=== PATIENT | female | born 1985 | race Two or more races ===

== ENCOUNTER 2020-08-22 10:17 | Outpatient (REF) | payer OTHER, SELFPAY | END 2020-08-22 10:18 | disposition home or self-care (01) | LOC: HO.LAB 10:17 | PROVIDERS: Visit Provider Internal Medicine | DX: Z20.828 Contact with and (suspected) exposure to other viral communicable diseases (principal) | CPT/HCPCS: C9803; U0003 ==

== ENCOUNTER 2020-09-22 16:50 | Outpatient (REF) | payer OTHER, SELFPAY | END 2020-09-22 16:51 | disposition home or self-care (01) | LOC: HO.LAB 16:50 | PROVIDERS: Visit Provider Internal Medicine | DX: Z20.828 Contact with and (suspected) exposure to other viral communicable diseases (principal) | CPT/HCPCS: C9803; U0003 ==

== ENCOUNTER 2023-08-25 16:36 | Outpatient (REF) | payer OTHER, SELFPAY ==
[2023-09-01 03:19] LABS: HPV mRNA E6/E7 rflx Detected (Not Detected)
[2023-09-01 03:28] LABS: HPV 16 RNA NOT DETECTED (NOT DETECTED)
== END 2023-08-25 16:37 | disposition home or self-care (01) ==
LOC: HO.HHCLNP 16:36
PROVIDERS: Visit Provider Advanced Practice Midwife
DX: Z12.4 Encounter for screening for malignant neoplasm of cervix (principal); Z11.51 Encounter for screening for human papillomavirus (HPV)
CPT/HCPCS: 87624; 87625; 88142

== ENCOUNTER 2023-09-16 13:11 | Outpatient (REF) | payer OTHER, SELFPAY ==
--- NOTE | ~2023-09-16 | US_ITS ---
EXAMINATION: US PELVIS CLINICAL INFORMATION: Menorrhagia with regular cycle; the last menstrual period was on 09/08/2023. COMPARISON: None available. TECHNIQUE: Ultrasound of the pelvis is performed using both transabdominal and transvaginal transducers along with Doppler. Transvaginal imaging is performed due to inadequate visualization transabdominally. FINDINGS: Uterus: The uterus is anteverted and measures 7.9 x 4.3 x 6.0 cm. The double wall endometrial thickness is 8 mm. A small amount of nonspecific, anechoic fluid is seen within the endometrial canal. The uterus is smooth in contour and has normal myometrial echogenicity. No visible fibroid. Nabothian cysts are seen within the cervix. Adnexa: Both ovaries are visualized. There is normal color flow to the adnexa. There is no ovarian torsion. There is no pelvic ascites or fluid collection. Right ovary measures 3.1 x 1.6 x 2.4 cm, volume 6.2 mL. The right ovary contains a 1.3 x 1.2 x 1.3 cm simple, physiologic follicle. This requires no imaging follow-up. Left ovary measures 2.8 x 1.5 x 1.9 cm, volume 4.2 mL. US/US pelvic and transvaginal IMPRESSION: 1. Nabothian cysts are seen within the cervix. 2. There is a small amount of free fluid noted within the endocervical canal.
== END 2023-09-16 13:12 | disposition home or self-care (01) ==
LOC: HO.US 13:11
PROVIDERS: PCP Registered Nurse; Visit Provider Advanced Practice Midwife
DX: N92.0 Excessive and frequent menstruation with regular cycle (principal)
CPT/HCPCS: 76830; 76856

== ENCOUNTER 2024-09-11 18:21 | Outpatient (REF) | payer OTHER, SELFPAY ==
[2024-09-12 11:00] LABS: HPV 16,18/45 See PAP report
== END 2024-09-11 18:22 | disposition home or self-care (01) ==
LOC: HO.HHCLNP 18:21
PROVIDERS: Visit Provider Advanced Practice Midwife
DX: Z12.4 Encounter for screening for malignant neoplasm of cervix (principal)
CPT/HCPCS: 87624; 88175

== ENCOUNTER 2024-11-02 11:11 | Outpatient (REF) | payer OTHER, SELFPAY ==
--- NOTE | ~2024-11-02 | XR_ITS ---
EXAMINATION: XR LUMBOSACRAL SPINE CLINICAL INFORMATION: Low back pain COMPARISON: None available. TECHNIQUE: Three views of the lumbosacral spine. FINDINGS: The vertebral bodies and posterior elements are normal. The disc spaces are preserved and the vertebral alignment is normal. The paraspinal soft tissues are normal. XR/XR lumbar spine 2-3V IMPRESSION: Unremarkable lumbar spine examination. Electronically signed by: Kevon Lynch MD 11/02/2024 11:31 AM SHAHID
== END 2024-11-02 11:12 | disposition home or self-care (01) ==
LOC: HO.HHCX 11:11
PROVIDERS: Visit Provider Registered Nurse
DX: M54.50 Low back pain, unspecified (principal)
CPT/HCPCS: 72100

== ENCOUNTER → 2024-11-02 11:11 | Outpatient (BNV) | payer OTHER, SELFPAY | PROVIDERS: Visit Provider Radiology Diagnostic Radiology | DX: M54.50 Low back pain, unspecified (principal) | CPT/HCPCS: 72100 ==

== ENCOUNTER 2024-11-12 10:19 | Outpatient (REF) | payer OTHER, SELFPAY ==
[2024-11-12 11:33] LABS: MANUAL DIFF FLAG NO
[2024-11-12 11:45] LABS: Basophils Percent Auto 0.3 % (0-2); Eosinophils Absolute Auto 0.1 X10*3/uL (0.0-0.4); Eosinophils Percent Auto 2.5 % (0-4); Hematocrit 32.6 % (37.0-47.0); Hemoglobin 10.1 g/dl (12.0-16.0); Lymphocytes Absolute Auto 1.8 X10*3/uL (1.2-4.9); Lymphocytes Percent Auto 50.3 % (20-40); Mean Corpuscular Hemoglobin 25.8 pg (27.0-33.0); Mean Corpuscular Volume 83.4 fL (80.0-98.0); Mean Platelet Volume 11.5 fL (9.4-12.3); Monocytes Absolute Auto 0.2 X10*3/uL (0.1-1.2); Monocytes Percent Auto 5.8 % (2-11); Neutrophils Absolute Auto 1.5 x10*3/uL (2.0-8.3); Neutrophils Percent Auto 41.1 % (45-73); Platelet Count 224 X10*3/uL (160-400); Red Blood Count 3.91 X10*6/uL (4.20-5.50); Red Cell Distribution Width 13.7 % (11.0-16.0); White Blood Count 3.6 X10*3/uL (4.8-10.8)
[2024-11-12 12:10] LABS: Ferritin 20 ng/mL (10-122)
[2024-11-12 12:14] LABS: TSH reflex Free T4 0.92 uIU/mL (0.32-4.0)
--- OUTSIDE RECORDS SUMMARY | 2024-11-12 14:58 | XMS_ITS | Encounter Summary ---
Author Organization [facility] Address [address] [place] [address] [address], [place] [address] Care Team Providers Care Denture Packer Name Role Phone [place] [employer] FIELD HUMAN RESOURCES MANAGER Primary Care Provider [phone] Reason for Referral * Imaging (Urgent) - Authorized Specialty Diagnoses / Procedures Referred By Contac t Referred To Contact Radiology Diagnoses Abnormal uterine bleeding (AUB) Procedures Us Pelvis complete Bonnie Laughlin CNM [address] [place] [address] Phone: tel: fax: [facility] [address] [place] [id number] Phone: tel: fax: Referral ID Status Reason Start Date Expiration Date V isits Requested Visits Authorized [id number] Authorized 11/12/2024 11/12/2025 1 1 * Imaging (Urgent) - Authorized Specialty Diagnoses / Procedures Referred By Contac t Referred To Contact Radiology Diagnoses Abnormal uterine bleeding (AUB) Procedures US Pelvis Transvaginal Bonnie Laughlin CNM [address] [place] [address] Phone: tel: fax: [facility] [address] [place] [address] Phone: tel: fax: Referral ID Status Reason Start Date Expiration Date V isits Requested Visits Authorized [id number] Authorized 11/12/2024 11/12/2025 1 1 Encounter Details Date Type Department Care Team (Latest Contact Info) Description 11/12/2024 9:30 AM EST Procedure Visit [facility] [address] [place] [address] Bonnie Laughlin CNM [address] [place] [address] Encounter for initial insertion of intrauterine contraceptive device (Primary Dx); Abnormal uterine bleeding (AUB); Screening examination for venereal disease Social History Tobacco Use Types Packs/Day Years Used Date Smoking Tobacco: Former Cigarettes Smokeless Tobacco: Never Alcohol Use Standard Drinks/Week Comments Never 0 (1 standard drink = 0.6 oz pur e alcohol) Depression Answer Date Recorded Patient Health Questionnaire-9 Score 0 11/02/2024 Patient Health Questionnaire-9 Score 0 11/02/2024 Last PHQ-9: Questionnaire Data Not on file 0 11/02/2024 Housing Stability Answer Date Recorded What is your housing situation today? I have antoinette ferreira 10/24/[address] you li ve. Do you have problems with any of the following? None of the above 10/24/2024 Food Insecurity Answer Date Recorded Within the past 12 months, y ou worried that your food would run out before you got money to buy more: Never True 10/24/2024 Within the past 12 months,th e food you bought just didn't last and you didn't have enough money to get more: Never True 05/2025 Transportation Answer Date Recorded In the past 12 months, has l ack of transportation kept you from medical appts, meetings, work or from getting things needed for daily living? No 10/24/2024 Utilities Answer Date Recorded In the past 12 months, has t he electric, gas, oil or water company threatened to shut off services in your home? No 10/24/2024 Depression Answer Date Recorded Patient Health Questionnaire-2 Score 0 11/02/2024 Internet Access Answer Date Recorded Internet Access Q1 Yes 10/24/2024 Internet Access Q2 Not on file 10/24/2024 Comments No Sex and Gender Information Value Date Recorded Sex Assigned at Female 08/16/2022 10:39 AM EDT Legal Sex Female 10:39 AM EDT Gender Identity Female 08/16/2022 10:39 AM EDT Sexual Orientation Straight 08/16/2022 10 :39 AM EDT Travel History Travel Start Travel End [place] 10/12/2024 10/20/2024 documented as of this encounter Last Filed Vital Signs Vital Sign Reading Time Taken Comments Blood Pressure 157/85 11/12/2024 9:30 AM EST Pulse 53 11/12/2024 9:30 AM EST Temperature 36.4 ??C (97.6 ??F) 11/12/2024 9:30 AM ES T Respiratory Rate 16 11/12/2024 9:30 AM EST Oxygen Saturation 99% 11/12/2024 9:30 AM EST Inhaled Oxygen Concentration - - Weight 73.3 kg (161 lb 8.8 oz) 11/12/2024 9:30 A M EST Height 165.1 cm (5' 5 ) 11/12/2024 9:30 AM EST Body Mass Index 26.88 11/12/2024 9:30 AM EST documented in this encounter Progress Notes * Bonnie Laughlin CNM - 11/12/2024 9:30 AM EST Subjective Patient ID: Sara Lino is a 39 y.o. female who presents for IUD Pap NIL/HPV neg 2023. No worrisome findings on ultrasound 2022. Interested in progestin IUD for treatment of heavy menses. Has tubal ligation. Treated for pneumonia with ? Erythromycin by outside urgent care. Feeling better now. Notes shortened menstrual interval which is newer for her, as well as some night sweats. LMP 1/24, still bleeding today. Previous menses 17 x 6 days. Typically menses more or less monthly, occasional 21-22 day interval.History of fibroid. Denies vaginal/urinary symptoms. Review of Systems Constitutional: Negative for unexpected weight change. Endocrine: Positive for heat intolerance. Genitourinary: Positive for menstrual problem. Negative for vaginal discharge and vaginal pain. Objective BP (!) 157/85 (BP Location: Left arm, Patient Position: Sitting, BP Cuff Size: Adult) Pulse 53 Temp 97.6 ??F (36.4 ??C) (Temporal) Resp 16 Ht 5' 5 (1.651 m) Wt 161 lb 8.8 oz (73.3 kg) LMP 11/09/2024 (Exact Date) SpO2 99% BMI 26.88 kg/m?? Physical Exam Constitutional: Appearance: Normal appearance. Neurological: Mental Status: She is alert. Psychiatric: Mood and Affect: Mood normal. Behavior: Behavior normal. Assessment/Plan Diagnoses and all orders for this visit: Encounter for initial insertion of intrauterine contraceptive device - POCT , urine manually resulted test negative today. New onset shortened interval, history of fibroids. Last [pelvic ultrasound 09/2023. Reviewed need for further evaluation prior to IUD insertion. Will check ultrasound and TSH and contact with results. If normal ultrasound and TSH, and no further AUB, will proceed withIUD. If AUB persists, or if indicated by ultrasound, would advise TRAFFIC CONTROL TECHNICIAN consult for Endometrial biopsy Abnormal uterine bleeding (AUB) - TSH W/Reflex to FT4; Future - US Pelvis Transvaginal; Future - Us Pelvis complete; Future Will check ultrasound and TSH and contact with results. If normal ultrasound and TSH, and no further AUB, will proceed with IUD. If AUB persists, or if indicated by ultrasound, would advise TRAFFIC CONTROL TECHNICIAN consult for Endometrial biopsy Screening examination for venereal disease - Chlamydia/N. Gonorrhoeae RNA, TMA, Urogenitial documented in this encounter Plan of Treatment Scheduled Orders Name Type Priority Associated Diagnoses Orde r Schedule Chlamydia/N. Gonorrhoeae RNA, TMA, Urogenitial Microbiology Routine Screening examination for venereal disease Ordered: 11/12/2024 US Pelvis Transvaginal Imaging Urgent Abnormal uterine bleeding (AUB) Expected: 11/12/2024, Expires: 11/12/2025 Us Pelvis complete Imaging Urgent Abnormal uterine bleeding (AUB) Expected: 11/12/2024, Expires: 11/12/2025 documented as of this encounter Procedures Procedure Name Priority Date/Time Associated Diagnosis Comments TSH W/REFLEX TO FT4 Routine 11/12/2024 10:22 AM EST Abnormal uterine bleeding (AUB) POCT , URINE Routine 11/12/2024 9:45 AM EST Encounter for initial insertion of intrauterine contraceptive device documented in this encounter Results * TSH W/Reflex to FT4 (11/12/2024 10:22 AM EST) TSH reflex Free T4 0.92 0.32 - 4.0 uIU/mL [facility] Blood Venous blood specimen / Unknown 11/12/2024 10:22 AM EST 11/12/2024 11:30 AM EST Bonnie ROY LAB BLOOD ORDERABLES Genesis l Result [facility] [address] [place] [phone] * POCT , urine manually resulted (11/12/2024 9:45 AM EST) Preg Test, Ur Negative Negative, Indeterminate, None Detected, Invalid, Specimen unsatisfactory for evaluation, Weakly Positive QC Media Lot # [id number] Lot# Expiration Date [id number] Urine 11/12/2024 9:45 AM EST Bonnie Laughlin [facility] POINT OF CARE TEST ENTER/ EDIT ORDERABLES Final Result documented in this encounter Visit Diagnoses Diagnosis Encounter for initial insertion of intrauterine contraceptive device- Primary Abnormal uterine bleeding (AUB) Screening examination for venereal disease documented in this encounter Additional Health Concerns Assessment Noted Time PHQ-9 Depression Total Score: 0 11/02/19 25 9:34 AM EST documented as of this encounter Care Teams Denture Packer Relationship Specialty Start Date End Date Nereyda Kuo FNP [address] [place] [phone] PCP - General Family Medicine 03/01/23 documented as of this encounter
--- OUTSIDE RECORDS SUMMARY | 2024-11-12 14:58 | XMS_ITS | Encounter Summary ---
Author Organization [facility] [employer] Address [address] [place] [address] Care Team Providers Care Artists' Model Name Role Phone [place] [facility] Primary Care Provider [phone] Encounter Details Date Type Department Care Team (Late st Contact Info) Description 11/06/[address] [facility] MEDICINE [address] [place], [place] [phone] [place] [facility] [address] [place], [place] [phone] Social History Tobacco Use Types Packs/Day Years Used Date Smoking Tobacco: Every Day Cigarettes Smokeless Tobacco: Never Alcohol Use Standard [...] EDT Travel History Travel Start Travel End [place] 10/12/2024 10/20/2024 documented as of this encounter Plan of Treatment Not on file documented as of this encounter Visit Diagnoses Not on filedocumented in this encounter Additional Health Concerns Assessment Noted Time PHQ-9 Depression Total Score: 0 11/02/19 25 9:34 AM EST documented as of this encounter Care Teams Artists' Model Relationship Specialty Start Date End Date Nereyda Kuo FNP [address] [place] [id number] PCP - General Family Medicine 03/01/23 documented as of this encounter
--- OUTSIDE RECORDS SUMMARY | 2024-11-12 14:58 | XMS_ITS | Clinical Summary ---
Author Organization [employer] Address [address] [facility] 7t [place] [address] Care Team Providers Care Cloth Neutralizer Name Role Phone Ayaan [facility] Primary Care Provider [phone] Allergies No known active allergies Medications ferrous gluconate (Fergon) 324 (38 Fe) MG tabletIndicati ons:Iron deficiency anemia due to chronic blood loss Take one tablet by mouth every other day 30 tablet 11 03/28/20 23 Active clotrimazole (Lotrimin) 1 % cream Apply topically 2 times daily. 40 g 1 04/26/20 23 Active cyclobenzaprin e (Flexeril) 5 MG tabletIndicati ons:Low back pain at multiple sites Take 1 tablet (5 mg) by mouth if needed in the morning, at noon, and at bedtime for muscle spasms. 30 tablet 1 11/02/19 25 026 Active ibuprofen 600 MG tabletIndicati ons:Low back pain at multiple sites Take 1 tablet (600 mg) by mouth every 6 (six) hours if needed for mild pain. 30 tablet 3 11/02/19 25 Active sertraline (Zoloft) 50 MG tabletIndicati ons:Anxiety Take 1 tablet (50 mg) by mouth in the morning. 30 tablet 11 03/29/20 23 025 Discontinued fluconazole (Diflucan) 150 MG tablet One tablet now, repeat 3 days if needed 2 tablet 09/25/20 24 025 Discontinued Active Problems Problem Noted Date Diagnosed Date Healthcare maintenance 03/29/2023 Overview (03/29/2023): Mammo: Routine age 40 Pap: Hx of abnormal pap. 03/2021 NIL HPV +/ 05/2022, due in April for pap; C-scope: Routine age 45 BMD: Routine age 65 Iron deficiency anemia due to chronic blood loss 03/29/2023 Overview (03/29/2023): ?? Oral ferrous gluconate every other day ?? Previously receiving IV iron in [place] d/t difficult tolerating s/e ?? S/t heavy menses Anxiety 03/06/2023 Overview (03/29/2023): ?? Sertraline 25mg daily ?? Declined [facility] referral Tobacco use disorder 03/06/2023 Encounters Date Type Department Care Team Description 11/12/2024 9:30 AM EST Procedure Visit [facility] [address] Markie Sullivan CNM Encounter for initial insertion of intrauterine contraceptive device (Primary Dx); Abnormal uterine bleeding (AUB); Screening examination for venereal disease 11/12/2024 Travel 11/06/2024 Telephone [facility] Carlos Manuel [facility] [place] [address] Wray Nereyda [facility] 11/02/2024 9:30 AM EST Office Visit [facility] [address] [facility] Healthcare maintenance (Primary Dx); Viral upper respiratory tract infection; Low back pain at multiple sites; Anxiety; Menorrhagia with regular cycle; Family history of breast cancer; Tobacco use disorder; Dietary counseling; Exercise counseling 11/02/2024 Travel 10/24/2024 Patient Outreach [facility] Carlos [place] [facility] [place] [address] [facility] Pre-visit Planning (SDOH screening negative and tobacco screening negative) 09/25/2024 1:00 PM EST Office Visit [facility] [address] Markie Sullivan CNM Candidiasis of vulva and vagina (Primary Dx) 09/25/2024 Travel 09/24/2024 Telephone [facility] Carlos [place] [facility] [place] [address] Abbi Ewing RN 09/11/2024 9:30 AM EST Procedure Visit [address] [address] Markie Sullivan CNM Acute vaginitis (Primary Dx); Routine cervical smear; Breast cancer screening by mammogram; Menorrhagia with regular cycle 09/11/2024 Travel 08/30/2024 Telephone [facility] [address] [place] [address] Cori Johnston MA chart prep 08/30/2024 Telephone [facility] [address] [place] [address] Markie Sullivan CNM appointment reschedule 08/30/2024 Travel 08/28/2024 Telephone [facility] [address] [place], [place] [phone] Nereyda Kuo FNP Nurse Triage; Results (PATIENT CALLED TO CANCEL APPT. SICK ON SITE ) from Last 3 Months Immunizations Name Administration Dates Next Due DTP 04/12/1989, 6,1985,1984 DTaP / HiB / IPV 05/07/1988,07/11/1986 HPV 9-Valent 07/12/2022 HPV, Quadrivalent 11/24/2018,09/22/2018 Hep B, Adolescent or Pediatric 10/06/1998,1997,04/01/1998 IPV 04/12/1989,1985,1985 Influenza Injectable Quadriv alant Preservative Free IIV4 MDCK 07/07/2023,09/08/2022,07/22/2021 Influenza injectable quadriv alent preservative free 08/07/2020 Influenza, seasonal, injecta ble, preservative free 07/04/2024 MMR 11/08/1994,07/11/1986 TD (adult), 2 Lf tetanus tox oid, preservative free, adsorbed 04/22/2003,05/22/1992 Family History Medical History Relation Name Comments Premenopausal breast cancer Father's Sister 1 Premenopausal breast cancer Father's Sister 2 2 aunts total with breast cancer Relation Name Status Comments Father's Sister 1 Father's Sister 2 Other Social History Tobacco Use Types Packs/Day Years [...] EDT Travel History Travel Start Travel End [place] 10/12/2024 10/20/2024 Last Filed Vital Signs Vital Sign Reading [...] Mass Index 26.88 11/12/2024 9:30 AM EST Plan of Treatment Health Maintenance Due Date Last Done Comments Alcohol/Substance Use Screening 1997 DTaP/Tdap/Td Vaccines (6 - Tdap) 04/23/2003 04/22/2003, 05/22/1992, 04/12/1989, Additional history exists COVID-19 Vaccine ( season) 2024 10/06/2021, 12/03/2020, 11/05/2020 Cervical Cancer Screening 09/11/2025 HPV/Cotest 09/11/2025 08/25/2023 Pap Smear 09/11/2025 09/11/2024, 08/25/2023 SDOH Screening 10/24/2025 10/24/2024 Depression Screening 11/02/2025 11/02/2024, 03/01/20 23 Family Planning (PISQ) 11/12/2025 11/12/2024 Tobacco Screening 11/12/2025 11/12/2024 Zoster Vaccines (1 of 2) 2035 RSV Patients and Patients Aged 60 years or older (1 - 1-dose 75+ series) 2060 HIB Vaccines Completed 05/07/1988, 07/11/1986 IPV Vaccines Completed 04/12/1989, 04/17, 07/11/1986, Additional history exists Hepatitis B Vaccines Completed 10/06/1998, 05/01/1998, 04/01/1998 HPV Vaccines Completed 07/12/2022, 02/0 05/2019, 09/22/2018 HIV Screening Completed 03/25/2023 Hepatitis C Screening Completed 03/25/2023 Influenza Vaccine Completed 07/04/2024, , 09/08/2022, Additional history exists Hepatitis A Vaccines Aged Out No long er eligible based on patient's age to complete this topic Meningococcal Vaccine Aged Out No cecelia mai eligible based on patient's age to complete this topic Pneumococcal Vaccine: Pediatrics (0 to 5 Years) and At-Risk Patients (6 to 64 Years) Aged Out No longer eligible based on patient's age to complete this topic RSV under 20 months Aged Out No longe r eligible based on patient's age to complete this topic Rotavirus Vaccines Aged Out No longer eligible based on patient's age to complete this topic Procedures Procedure Name Priority Date/Time Associated Diagnosis Comments TSH W/REFLEX TO FT4 Routine 11/12/2024 1 0:22 AM EST Abnormal uterine bleeding (AUB) FERRITIN Routine 11/12/2024 10:22 AM EST Menorrhagia with regular cycle CBC WITH AUTO DIFFERENTIAL Routine 11/12/2024 10:22 AM EST Menorrhagia with regular cycle POCT , URINE Routine 11/12/2024 9:45 AM EST Encounter for initial insertion of intrauterine contraceptive device XR LUMBAR SPINE 2-3 VIEWS Routine 11/02/2024 11:11 AM EST Low back pain at multiple sites POCT WET MOUNT/PAOLA Routine 09/25/2024 8: 52 AM EST Candidiasis of vulva and vagina POCT WET MOUNT/PAOLA Routine 09/11/2024 9: 59 AM EST Acute vaginitis PAP SMEAR Routine 09/11/2024 9:52 AM EST Routine cervical smear HPV MRNA E6/E7 REFLEX TO HPV 16, 18/45 Routine 08/25/2023 9:33 AM EST HEPATITIS C AB W/REFL TO HCV RNA, QN, PCR Routine 03/25/2023 8:25 AM EDT Healthcare maintenance HIV 1/2 ANTIGEN/ANTIBODY, FOURTH GENERATION W/RFL Routine 03/25/2023 8:25 AM EDT Healthcare maintenance from Last 3 Months or Most Recently Relevant to Health Maintenance Results * TSH W/Reflex to FT4 (11/12/2024 10:22 AM EST) TSH reflex Free T4 0.92 0.32 - 4.0 uIU/mL [facility] Blood Venous blood specimen / Unknown 11/12/2024 10:22 AM EST 11/12/2024 11:30 AM EST us Markie Sullivan [facility] LAB BLOOD ORDERABLES Genesis l Result [facility] [address] [place] [address] [phone] * (ABNORMAL) CBC auto differential (11/12/2024 10:22 AM EST) Pathologist [facility] White Blood Count 3.6(L) 4.8 - 10.8 X10*3/uL [facility] Red Blood Count 3.91(L) 4.20 - 5.50 X10*6/uL [facility] Hemoglobin 10.1(L) 12.0 - 16.0 g/dl [facility] Hematocrit 32.6(L) 37.0 - 47.0 % [facility] Mean Corpuscular Volume 83.4 80.0 - 98.0 fL [facility] Mean Corpuscular Hemoglobin 25.8(L) 27.0 - 33.0 pg [facility] Mean Corpuscular HGB Conc 31.0 31.0 - 35.0 g/dl [facility] Red Cell Distribution Width 13.7 11.0 - 16.0 % [facility] Platelet Count 224 160 - 400 X10*3/uL [facility] Mean Platelet Volume 11.5 9.4 - 12.3 fL [facility] Neutrophils Percent Auto 41.1(L) 45 - 73 % [facility] Imm Gran Pct Auto 0.0 0.0 - 0.4 % [facility] Lymphocytes Percent Auto 50.3(H) 20 - 40 % [facility] Monocytes Percent Auto 5.8 2 - 11 % [facility] Eosinophils Percent Auto 2.5 0 - 4 % [facility] Basophils Percent Auto 0.3 0 - 2 % [facility] NRBC Pct Auto 0.0 0.0 - 0.2 /100WBC [facility] Neutrophils Absolute Auto 1.5(L) 2.0 - 8.3 x10*3/uL [facility] Imm Gran Abs Auto 0.00 0.00 - 0.03 X10*3/uL [facility] Lymphocytes Absolute Auto 1.8 1.2 - 4.9 X10*3/uL [facility] Monocytes Absolute Auto 0.2 0.1 - 1.2 X10*3/uL [facility] Eosinophils Absolute Auto 0.1 0.0 - 0.4 X10*3/uL [facility] Basophils Absolute Auto 0.0 0.0 - 0.2 X10*3/uL [facility] NRBC Abs Auto 0.000 0.0 - 0.012 X10*3/uL [facility] Blood Venous blood specimen / Unknown 11/12/2024 10:22 AM EST 11/12/2024 11:30 AM EST [facility] LAB BLOOD ORDERABLES Final Re sult Performing Organization Address City/[facility]/ZIP Co de Phone Number [facility] [address] [place] [address] [phone] * Ferritin (11/12/2024 10:22 AM EST) Ferritin 20 10 - 122 ng/mL [facility] Blood Venous blood specimen / Unknown 11/12/2024 10:22 AM EST 11/12/2024 11:30 AM EST [facility] LAB BLOOD ORDERABLES Final Re sult Performing Organization Address City/[facility]/ZIP Co de Phone Number [facility] [address] [place] [address] [phone] * POCT , urine manually resulted (11/12/2024 9:45 AM EST) Preg Test, Ur Negative Negative, Indeterminate, None Detected, Invalid, Specimen unsatisfactory for evaluation, Weakly Positive QC Media Lot # [id number] Lot# Expiration Date [id number] Urine 11/12/2024 9:45 AM EST us Markie Tabaresfaye CNM POINT OF CARE TEST ENTER/ EDIT ORDERABLES Final Result * XR Lumbar Spine 2-3 Views (11/02/2024 11:11 AM EST) Anatomical Region Laterality Modality Spine, L-spine Radiographic Carine ging 11/02/2024 11:1 1 AM EST Narrative 11/02/2024 11:34 AM EST ?[facility] ?[address] ?[place] [address] ?XRay Report ? Signed ? Patient: Sara Lino ?MR#: [id number] ?? 37 ? : 1985 ?Acct:[id number] ? Age/Sex: 39 / F ?ADM Date: 11/02/24 ? Loc: HO.HHCX ? Attending Dr: Nereyda Kuo FLOOR MECHANIC ? Ordering Physician: Nereyda Kuo FLOOR MECHANIC ?? Date of Service: 11/02/24 ?? Procedure(s): XR lumbar spine 2-3V ?? Accession Number(s): [id number] ? cc: Nereyda Kuo FLOOR MECHANIC ? EXAMINATION: ?? XR LUMBOSACRAL SPINE ? CLINICAL INFORMATION: ?? Low back pain ? COMPARISON: ?? None available. ? TECHNIQUE: ?? Three views of the lumbosacral spine. ? FINDINGS: ?? The vertebral bodies and posterior elements are normal. The disc spaces ?? are preserved and the vertebral alignment is normal. The paraspinal ?? soft tissues are normal. ? XR/XR lumbar spine 2-3V ?? IMPRESSION: ?? Unremarkable lumbar spine examination. ? Electronically signed by: ??Kevon Lynch MD ??11/02/2024 11:31 AM EST RP ? Dictated By: ?Cris,Kevon S MD ? Signed By: ?<Electronically signed by Kevon S MD Cris in OV> ?11/02/24 1131 ? DD/ 1111 ? TD/TT: 11/02/24 1128 ? Production Director: MSM ? Procedure Note Donotuseinterpreter, Image - 11/02/2024 [facility] [address] [place] [address] XRay Report Signed Patient: Dash Lino#: [id number] 37 : 1985Acct:[id number] Age/Sex: 39 / FADM Date: 11/02/24 Loc: HO.HHCX Attending Dr: Nereyda Kuo FLOOR MECHANIC Ordering Physician: Nereyda Kuo Date of Service: 11/02/24 Procedure(s): XR lumbar spine 2-3V Accession Number(s): [id number] cc: Nereyda Kuo [facility] EXAMINATION: XR LUMBOSACRAL SPINE CLINICAL INFORMATION: Low back pain COMPARISON: None available. TECHNIQUE: Three views of the lumbosacral spine. FINDINGS: The vertebral bodies and posterior elements are normal. The disc spaces are preserved and the vertebral alignment is normal. The paraspinal soft tissues are normal. XR/XR lumbar spine 2-3V IMPRESSION: Unremarkable lumbar spine examination. Electronically signed by: Kevon Lynch MD 11/02/2024 11:31 AM EST Dictated By: Kevon Lynch MD Signed By: <Electronically signed by Kevon Lynch MD in OV> 11/02/24 1131 DD/ 1111 TD/TT: 11/02/24 1128 Production Director: MSM [facility] FLOOR MECHANIC IMG XR PROCEDURES Edited Resu lt - Final * POCT fern test, vaginal fluid manually resulted (09/25/2024 8:52 AM EST) Only the most recent of2 resultswithin the time period is included. PAOLA Prep Positive Comment:pH 4.5, neg whiff, n eg clue, neg trich, neg wbc, pos yeast Vaginal Fluid Vaginal structure / Unknown 09/25/2024 8:52 AM EST Impressions Markie Sullivan CNM - 09/25/2024 8:52 AM EST Vulvovaginal candidiasis Markie Sullivan CNM POINT OF CARE TEST ENTER/ EDIT ORDERABLES Final Result * Pap Smear (09/11/2024 9:52 AM EST) Swab Cervix uteri structure / Unknown 09/11/2024 9:52 AM EST 09/12/2024 8:30 AM EST Narrative [facility] - 09/19/2024 10:33 AM EST ----- ------- Name: Sara Lino ? Age/Sex: 39/F ? : 1985 Unit#: [id number] ?? Attend Dr: MARKIE SULLIVAN CNM ?Re09/11/24 ?Status: DEP REF ? Location: HOMARY ? Disch: ? ----- ------- SPEC : [id number] ?RECD: 09/12/24 ? STATUS: ??SOUT ? REQ NUM: [id number] ? TRAE: 09/11/24 ? SUBM DR: MARKIE SULLIVAN CNM ? ENTERED: ??09/12/24 ?SP TYPE: Pap Smr ?OTHR DR: ? ORDERED: ??Pap Smear ? Interpretation ?? Satisfactory for evaluation. ?? Negative for intraepithelial lesion or malignancy. ?? Coccobacilli consistent with shift in vaginal jojo. ? HPV High Risk: ??Negative ? HPV Genotyping 16: ??Negative ?? HPV Genotyping 18: ??Negative ?Clinical Information LMP: 09/03/2024 Previous PAP test: Unknown date, HPV + ? Material Received ?? ThinPrep-Cervical ----- ------- Signed (signature on file) AMANDA Fletcher (ASCP) 09/19/24 1033 ? ----- ------- ? END OF REPORT ? us Markie Tabaresfaye [facility] CYTOLOGY ORDERABLES F inal Result [facility] [address] [place], [place] [phone] * (ABNORMAL) HPV mRNA E6/E7 w/Reflex to HPV Genotypes 16, 18/45 (08/25/2023 9:33 AM EST) HPV nRNA E6/E7 Detected(A ) Not Detected [facility] Comment:Methodology: Transcr iption-Mediated AmplificationThis assay detects E6/E7 viral messenger RNA (mRNA) from 14high-risk HPV types (16,18,31,33,35,39,45,51,52,56,58,59,66,68).Cervical sources are required for HPV testing.If a vaginal source from a patient who has had atotal hysterectomy with removal of cervix wassubmitted, please contact the testing laboratoryfor alternative testing options.For additional information, please refer tohttp://education.[employer]/faq/KDY265j1(This link if provided for information/educational purposes only.)THIS TEST WAS PERFORMED AT:[email or web address] [place] [phone] PRICE MD HPV 16 RNA NOT DETECTED NOT DETECTED [facility] HPV 18/45 RNA NOT DETECTED NOT DETECTED [facility] Comment:Methodology: Transcr iption Mediated AmplificationCervical sources are required for HPV testing.If a vaginal source from a patient who has had atotal hysterectomy with removal of cervix wassubmitted, please contact the testing laboratoryfor alternative testing options.THIS TEST WAS PERFORMED AT:[email or web address] [place] [phone] PRICE MD 08/25/2023 9:33 AM EST 08/26/2023 8:10 AM EST Markie Truman CN LAB CYTOLOGY ORDERABLES F inal Result Performing Organization Address City/[facility]/ZIP Co de Phone Number [facility] [address] [place] [phone] * Hepatitis C Antibody with Reflex to HCV, RNA, Quantitative, Real-Time PCR (03/25/2023 8:25 AM EDT) Pathologist [facility] Hepatitis C Antibody NON-REACT KATIE NON-REACT KATIE [facility] Index <0.02 <1.00 [facility] Comment: HCV antibody was non-reactive. There is no laboratory evidence of HCV infection. In most cases, no further action is required. However, if recent HCV exposure is suspected, a test for HCV RNA (test code 36754) is suggested. For additional information please refer to http://education.[employer]/faq/QOU41r6 (This link is being provided for informational/ educational purposes only.) Blood Venous blood specimen / Unknown 03/25/2023 8:25 AM EDT 03/25/2023 8:26 AM EDT Narrative [facility] - 03/27/2023 11:14 AM EDT FASTING:YES FASTING: YES [facility] FLOOR MECHANIC LAB BLOOD ORDERABLES Final Re sult Performing Organization Address City/[facility]/ZIP Co de Phone Number [facility] [address], [place] [address] [employer] [employer] [facility] [address] [place] [phone] * HIV-1/2 Antigen and Antibodies, Fourth Generation, with Reflexes (03/25/2023 8:25 AM EDT) Pathologist [facility] HIV Antigen/Antibody, 4th Generation NON-REAC TIVE NON-REAC TIVE [facility] Comment: HIV-1 antigen and HIV-1/HIV-2 antibodies were not detected. There is no laboratory evidence of HIV infection. PLEASE NOTE: This information has been disclosed to you from records whose confidentiality may be protected by state law. ??If your state requires such protection, then the state law prohibits you from making any further disclosure of the information without the specific written consent of the person to whom it pertains, or as otherwise permitted by law. A general authorization for the release of medical or other information is NOT sufficient for this purpose. ?? For additional information please refer to http://education.[employer]/faq/HMO438 (This link is being provided for informational/ educational purposes only.) The performance of this assay has not been clinically validated in patients less than 2 years old. Blood Venous blood specimen / Unknown 03/25/2023 8:25 AM EDT 03/25/2023 8:26 AM EDT Narrative [facility] - 03/27/2023 11:14 AM EDT FASTING:YES FASTING: YES [facility] FLOOR MECHANIC LAB BLOOD ORDERABLES Final Re sult [facility] [address], [place] [address] [facility] [address] [place] [phone] from Last 3 Months or Most Recently Relevant to Health Maintenance [place] [place] [address] , [address] [address] Care Teams Cloth Neutralizer Relationship Specialty Start Date End Date WrayNereyda FNP [address] [place] [phone] PCP - General Family Medicine 03/01/23
--- OUTSIDE RECORDS SUMMARY | 2024-11-12 14:58 | XMS_ITS | Encounter Summary ---
Author Organization [employer] Address [address] [facility] 7t [place] [address] Care Team Providers Care Practice Physician Name Role Phone Nereyda Kuo PATENT SEARCHER Primary Care Provider [phone] Encounter Details Date Type Department Care Team (Latest Contact Info) Description 11/12/2024 Travel Social History Tobacco Use Types Packs/Day Years [...] documented as of this encounter Care Teams Practice Physician Relationship Specialty Start Date End Date Nereyda Kuo FNP [address] [place] [phone] PCP - General Family Medicine 03/01/23 documented as of this encounter
--- OUTSIDE RECORDS SUMMARY | 2024-11-12 14:58 | XMS_ITS | Encounter Summary ---
Author Organization [employer] Address [address] [facility] [address]t [place] [address] Care Team Providers Care Truck Driver Teamster Name Role Phone Mobile [facility] Primary Care Provider [phone] Reason for Visit * Reason Comments Pre-visit Planning SDOH screening negat ke and tobacco screening negative Encounter Details Date Type Department Care Team ([facility] st Contact Info) Description 10/24/2024 Patient Outreach [facility] [address] [place], [place] [phone] [facility] [address] [place], [place] [phone] Pre-visit Planning (SDOH screening negative and tobacco screening negative) Social History Tobacco Use Types Packs/Day Years Used Date Smoking Tobacco: Every Day Cigarettes Smokeless Tobacco: Never Alcohol Use Standard Drinks/Week Comments Never 0 (1 standard drink = 0.6 oz pur e alcohol) Depression Answer Date Recorded Patient Health Questionnaire-9 Score 4 03/29/2023 Housing Stability Answer Date Recorded What is [...] Date Recorded Patient Health Questionnaire-2 Score 0 03/29/2023 Internet Access Answer Date Recorded Internet Access Q1 Yes 10/24/2024 Internet Access Q2 Not on file 10/24/2024 Comments No Sex and Gender Information Value Date Recorded Sex Assigned at Female 08/16/2022 10:39 AM EDT Legal Sex Female 10:39 AM EDT Gender Identity Female 08/16/2022 10:39 AM EDT Sexual Orientation Straight 08/16/2022 10 :39 AM EDT Travel History Travel Start Travel End [place] 10/12/2024 10/20/2024 documented as of this encounter Progress Notes * Shelly Perez - 10/24/2024 9:36 AM EST CC Shelly placed successful outbound call to patient for pre-visit planning. Patient name and confirmed. Patient confirms appt date and time, and has transportation. Biggest concern for appointment at this time is sciatic nerve pain and a herniated disc of L4-L5 Patient advised to bring to appointment a photo id and insurance card. Appropriate screenings completed in anticipation of appointment. documented in this encounter Plan of Treatment Not on file documented as of this encounter Visit Diagnoses Not on filedocumented in this encounter Additional Health Concerns Assessment Noted Time PHQ-9 Depression Total Score: 4 03/29/20 10:57 AM EDT documented as of this encounter Care Teams Truck Driver Teamster Relationship Specialty Start Date End Date Nereyda Kuo FNP [address] [place] [address] PCP - General Family Medicine 03/01/23 documented as of this encounter
--- OUTSIDE RECORDS SUMMARY | 2024-11-12 14:58 | XMS_ITS | Encounter Summary ---
Author Organization [employer] Address 75 [facility] 7 [place] [address] Care Team Providers Care Cork Molder Name Role Phone Nereyda Kuo Primary Care Provider [phone] Reason for Referral * Consultation (Routine) - Closed Specialty Diagnoses / Procedures Referred By Evie kline Referred To Contact Physical Therapy Diagnoses Low back pain at multiple sites Nereyda Kuo FNP [address] [place] [address] Phone: tel: fax: [facility] [address] [place] [address] Phone: tel: fax: Referral ID Status Reason Start Date Expiration Date V isits Requested Visits Authorized [id number] Closed Specialty Services Required 11/02/2024 11/02/2025 1 1 Reason for Visit * Reason Comments Annual Exam Encounter Details Date Type Department Care Team (Late st Contact Info) Description 11/02/2024 9:30 AM EST Office Visit [facility] [address] [place] [phone] Nereyda Kuo FNP [address] [place] [address] Healthcare maintenance (Primary Dx); Viral upper respiratory tract infection; Low back pain at multiple sites; Anxiety; Menorrhagia with regular cycle; Family history of breast cancer; Tobacco use disorder; Dietary counseling; Exercise counseling Social History Tobacco Use Types Packs/Day Years [...] EDT Travel History Travel Start Travel End [place] 10/12/2024 10/20/2024 documented as of this encounter Last Filed Vital Signs Vital Sign Reading Time Taken Comments Blood Pressure 120/82 11/02/2024 10:21 AM EST Pulse 73 11/02/2024 9:26 AM EST Temperature 36.4 ??C (97.5 ??F) 11/02/2024 9:26 AM ES T Respiratory Rate 20 11/02/2024 9:26 AM EST Oxygen Saturation 99% 11/02/2024 9:26 AM EST Inhaled Oxygen Concentration - - Weight 74.9 kg (165 lb 1.6 oz) 11/02/2024 9:26 A M EST Height 165.1 cm (5' 5 ) 11/02/2024 9:26 AM EST Body Mass Index 27.47 11/02/2024 9:26 AM EST documented in this encounter Progress Notes * [facility], CAR UNLOADER - 11/02/2024 9:30 AM EST SUBJECTIVE: Sara Lino is a 39 y.o. year old female who presents for routine physical exam. Denies recent illness, injury, or hospitalization. Acute Concerns: Upper respiratory symptoms x 1 day-myalgia, chills, fatigue. Denies ST/n/v. + diarrhea/abdominal pain. Left low back/sciatic pain--chronic symptoms present for several years. No known history of injury.No prior imaging or physical therapy. No LE weakness, bowel/bladder dysfunction, fever, or saddle anesthesia. Interim Updates: Not taking sertraline--difficulty remembering. Not working with therapist. Concerns re mom in [place] needing more help. Mat GM with alzheimers Social History Social History Narrative Current living environment: Lives with and kids Children: 2 ages 16 and 15 (boys) Employment/Education: Mental health clinician at [employer] Tobacco Use: 5-10 cigarettes/day Alcohol Use: Socailly Marijuana Use: Occasionally Other drug use: None Reproductive Health: Sexually Active: Yes Partners are: AMAB Control:BTL Planning a in the next 12 months: No Patient Active Problem List Diagnosis Anxiety Tobacco use disorder Healthcare maintenance Iron deficiency anemia due to chronic blood loss Past Surgical History: Procedure Laterality Date SECTION, UNSPECIFIED x2 CHOLECYSTECTOMY GASTRIC BYPASS Family History Problem Relation Name Age of Onset Premenopausal breast cancer Father's Sister 30 Premenopausal breast cancer Father's Sister 30 2 aunts total with breast cancer Review of Systems Constitutional: Positive for chills and fatigue. Negative for fever and unexpected weight change. HENT: Negative for dental problem, ear pain, hearing loss and sore throat. Eyes: Negative for pain and visual disturbance. Respiratory: Negative for cough and shortness of breath. Cardiovascular: Negative for chest pain. Gastrointestinal: Positive for diarrhea. Negative for abdominal pain and blood in stool. Endocrine: Negative. Genitourinary: Negative. Negative for dysuria. Musculoskeletal: Positive for back pain and myalgias. Skin: Negative. Allergic/Immunologic: Negative for immunocompromised state. Neurological: Negative for dizziness, weakness and headaches. Psychiatric/Behavioral: Negative. OBJECTIVE: Vitals: 11/02/24 0926 11/02/24 1021 BP: (!) 143/89 120/82 BP Location: Left arm Patient Position: Sitting BP Cuff Size: Adult Pulse: 73 Resp: 20 Temp: 97.5 ??F (36.4 ??C) TempSrc: Temporal SpO2: 99% Weight: 165 lb 1.6 oz (74.9 kg) Height: 5' 5 (1.651 m) Physical Exam Constitutional: General: She is not in acute distress. Appearance: Normal appearance. HENT: Right Ear: Tympanic membrane, ear canal and external ear normal. Left Ear: Tympanic membrane, ear canal and external ear normal. Nose: No congestion or rhinorrhea. Mouth/Throat: Pharynx: No oropharyngeal exudate or posterior oropharyngeal erythema. Eyes: Conjunctiva/sclera: Conjunctivae normal. Cardiovascular: Rate and Rhythm: Normal rate and regular rhythm. Heart sounds: Normal heart sounds. Pulmonary: Effort: Pulmonary effort is normal. Breath sounds: Normal breath sounds. Abdominal: General: There is no distension. Tenderness: There is no abdominal tenderness. Musculoskeletal: Cervical back: Normal. Thoracic back: Normal. Comments: Strength and sensation intact throughout lower extremities Lower extremity deep tendon reflexes 2+ throughout Tenderness to palpation over R SI joint Skin: General: Skin is warm and dry. Neurological: General: No focal deficit present. Mental Status: She is alert and oriented to person, place, and time. Psychiatric: Mood and Affect: Mood normal. Behavior: Behavior normal. ASSESSMENT/PLAN 1. Healthcare maintenance (Primary) - Cardiopulmonary exam WNL - Encouraged regular aerobic exercise with initial goal of 30 minute walk 3x/week gradually increasing to 150 min/week of moderate intensity exercise - Encouraged balanced diet with a variety of fruits, vegetables, and lean meats. Recommended to decrease soda and sugary beverage consumption. Routine Health Maintenance Optometry: Up to date with routine eye exam Dental: Established with dental provider. Up to date on routine care Adult IZ: Immunization History Administered Date(s) Administered DTP 1985, 1985, 1985, 04/12/1989 DTaP / HiB / IPV 07/11/1986, 05/07/1988 HPV 9-Valent 07/12/2022 HPV, Quadrivalent 09/22/2018, 11/24/2018 Hep B, Adolescent or Pediatric 04/01/1998, 05/01/1998, 10/06/1998 IPV 1985, 1985, 04/12/1989 Influenza Injectable Quadrivalant Preservative Free IIV4 MDCK 07/22/2021, 09/08/2022, 07/07/2023 Influenza injectable quadrivalent preservative free 08/07/2020 Influenza, seasonal, injectable, preservative free 07/04/2024 MMR 07/11/1986, 11/08/1994 Moderna Covid-19 Vaccine 12+ 11/05/2020, 12/03/2020, 10/06/2021 TD (adult), 2 Lf tetanus toxoid, preservative free, adsorbed 05/22/1992, 04/22/2003 Screenings Breast cancer screening: + family hx, genetic screening negative. Routine age 40 Cervical cancer screenin08/2023. Pap NIL/HPV pos, neg 16/18 ; 08/2024 NIL HPV neg; followed by JUAN Sheppard Colorectal cancer screening: Age 45 Bone mineral density: Routine age 65. Lung CA: Age 50 Reproductive Desires within 12 months: No Menopause: Denies vaginal bleeding/spotting IPV screening: Pt feels safe and healthy in current relationship(s) 2. Viral upper respiratory tract infection Patient stable with no evidence of respiratory distress Rapid flu/COVID negative in office Supportive care advised 3. Low back pain at multiple sites - Sx likely musculoskeletal. Non-focal, normal motor exam without neurological deficits. -Recommend NSAID and muscle relaxer prn. - Baseline xrays - Accepts physical therapy referral -Lifting precautions and stretching reviewed. -ER precaution discussed. -Contact HC if no sx improvement with conservative tx - cyclobenzaprine (Flexeril) 5 MG tablet; Take 1 tablet (5 mg) by mouth if needed in the morning, at noon, and at bedtime for muscle spasms. Dispense: 30 tablet; Refill: 1 - ibuprofen 600 MG tablet; Take 1 tablet (600 mg) by mouth every 6 (six) hours if needed for mild pain. Dispense: 30 tablet; Refill: 3 - Referral to Physical Therapy; Future - Referral to Physical Therapy - XR Lumbar Spine 2-3 Views; Future - XR Lumbar Spine 2-3 Views 4. Anxiety Declines referral to behavioral health at this time Will consider sertraline restart (has medication at home) No SI/thoughts of self-harm 5. Menorrhagia with regular cycle History of anemia secondary to to heavy menses Reports not currently taking oral iron supplement Has upcoming appointment for hormonal IUD for management Will check labs and follow-up pending results - CBC auto differential; Future - Ferritin; Future - CBC auto differential - Ferritin 6. Family history of breast cancer Family history significant for paternal aunt x 2 with breast cancer under age 30. Completed genetic screening 2020. 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 No known clinically actionable alterations 12/2022-variant was reclassified as benign with no additional testing indicated targeted testing ofat risk family members not recommended 7. Dietary counseling 8. Exercise counseling Follow Up: 1 year, routine PE Current Outpatient Medications on File Prior to Visit Medication Sig Dispense Refill clotrimazole (Lotrimin) 1 % cream Apply topically 2 times daily. 40 g 1 ferrous gluconate (Fergon) 324 (38 Fe) MG tablet Take one tablet by mouth every other day 30 [id number] fluconazole (Diflucan) 150 MG tablet One tablet now, repeat 3 days if needed 2 tablet 0 sertraline (Zoloft) 50 MG tablet Take 1 tablet (50 mg) by mouth in the morning. 30 tablet 11 No current facility-administered medications on file prior to visit. documented in this encounter Miscellaneous Notes * Result Encounter Note - Bonnie Sheppard CNM - 11/02/2024 9:30 AM EST RICKEY documented in this encounter Plan of Treatment Scheduled Referrals Name Type Priority Associated Diagnoses Orde r Schedule Referral to Physical Therapy Outpatient Referral Routine Low back pain at multiple sites Expected: 11/02/2024 (Approximate), Expires: 11/02/2025 documented as of this encounter Procedures Procedure Name Priority Date/Time Associated Diagnosis Comments CBC WITH AUTO DIFFERENTIAL Routine 11/12/2024 10:22 AM EST Menorrhagia with regular cycle FERRITIN Routine 11/12/2024 10:22 AM EST Menorrhagia with regular cycle XR LUMBAR SPINE 2-3 VIEWS Routine 11/02/2024 11:11 AM EST Low back pain at multiple sites documented in this encounter Results * Ferritin (11/12/2024 10:22 AM EST) Ferritin 20 10 - 122 ng/mL [facility] Blood Venous blood specimen / Unknown 11/12/2024 10:22 AM EST 11/12/2024 11:30 AM EST [facility] CAR UNLOADER LAB BLOOD ORDERABLES Final Re sult Performing Organization Address City/State/[facility] Co de Phone Number [facility] [address] [place] [phone] * (ABNORMAL) CBC auto differential (11/12/2024 10:22 AM EST) White Blood Count 3.6(L) 4.8 - 10.8 X10*3/uL [facility] Red Blood Count 3.91(L) 4.20 - 5.50 X10*6/uL [facility] Hemoglobin 10.1(L) 12.0 - 16.0 g/dl [facility] Hematocrit 32.6(L) 37.0 - 47.0 % [facility] Mean Corpuscular Volume 83.4 80.0 - 98.0 fL [facility] Mean Corpuscular Hemoglobin 25.8(L) 27.0 - 33.0 pg [facility] Mean Corpuscular HGB Conc 31.0 31.0 - 35.0 g/dl [facility] Red Cell Distribution Width 13.7 11.0 - 16.0 % [facility] Platelet Count 224 160 - 400 X10*3/uL [facility] Mean Platelet Volume 11.5 9.4 - 12.3 fL [facility] Neutrophils Percent Auto 41.1(L) 45 - 73 % [facility] Imm Gran Pct Auto 0.0 0.0 - 0.4 % [facility] Lymphocytes Percent Auto 50.3(H) 20 - 40 % [facility] Monocytes Percent Auto 5.8 2 - 11 % [facility] Eosinophils Percent Auto 2.5 0 - 4 % [facility] Basophils Percent Auto 0.3 0 - 2 % [facility] NRBC Pct Auto 0.0 0.0 - 0.2 /100WBC [facility] Neutrophils Absolute Auto 1.5(L) 2.0 - 8.3 x10*3/uL [facility] Imm Gran Abs Auto 0.00 0.00 - 0.03 X10*3/uL [facility] Lymphocytes Absolute Auto 1.8 1.2 - 4.9 X10*3/uL [facility] Monocytes Absolute Auto 0.2 0.1 - 1.2 X10*3/uL [facility] Eosinophils Absolute Auto 0.1 0.0 - 0.4 X10*3/uL [facility] Basophils Absolute Auto 0.0 0.0 - 0.2 X10*3/uL [facility] NRBC Abs Auto 0.000 0.0 - 0.012 X10*3/uL [facility] Blood Venous blood specimen / Unknown 11/12/2024 10:22 AM EST 11/12/2024 11:30 AM EST [facility] CAR UNLOADER LAB BLOOD ORDERABLES Final Re sult [facility] [address] [place] [phone] [phone] * XR Lumbar Spine 2-3 Views (11/02/2024 11:11 AM EST) Anatomical Region Laterality Modality Spine, L-spine Radiographic Carine ging 11/02/2024 11:1 1 AM EST Narrative 11/02/2024 11:34 AM EST ?[facility] ?[address] ?[place] [address] ?XRay Report ? Signed ? Patient: Lino,Zorylee ?MR#: [id number] ?? 37 ? : 1985 ?Acct:[id number] ? Age/Sex: 39 / F ?ADM Date: 11/02/24 ? Loc: HO.HHCX ? Attending Dr: Nereyda Kuo CAR UNLOADER ? Ordering Physician: Nereyda Kuo ?? Date of Service: 11/02/24 ?? Procedure(s): XR lumbar spine 2-3V ?? Accession Number(s): [id number] ? cc: Nereyda Kuo CAR UNLOADER ? EXAMINATION: ?? XR LUMBOSACRAL SPINE ? [...] 11:31 AM EST RP ? Dictated By: ?Kevon Lynch MD ? Signed By: ?<Electronically signed by Kevon Lynch MD in OV> ?11/02/24 1131 ? DD/ 1111 ? TD/TT: 11/02/24 1128 ? Park Worker Supervisor: MSM ? Procedure Note Cee, Dennis - 11/02/2024 [facility] [address] [place] [address] XRay Report Signed Patient: Dash Lino#: [id number] 37 : 1985Acct:[id number] Age/Sex: 39 / FADM Date: 11/02/24 Loc: HO.HHCX Attending Dr: Nereyda Kuo CAR UNLOADER Ordering Physician: Nereyda Kuo Date of Service: 11/02/24 Procedure(s): XR lumbar spine 2-3V Accession Number(s): [id number] cc: Nereyda Kuo CAR UNLOADER EXAMINATION: XR LUMBOSACRAL SPINE CLINICAL INFORMATION: Low [...] Kevon Lynch MD 11/02/2024 11:31 AM EST RP Dictated By: Kevon Lynch MD Signed By: <Electronically signed by Kevon Lynch MD in OV> 11/02/24 1131 DD/ 1111 TD/TT: 11/02/24 1128 Park Worker Supervisor: ELIZABETH [facility] CAR UNLOADER IMG XR PROCEDURES Edited Resu lt - Final documented in this encounter Visit Diagnoses Diagnosis Healthcare maintenance- Primary Viral upper respiratory tract infection Acute upper respiratory infections of unspecified site Low back pain at multiple sites Anxiety Anxiety state, unspecified Menorrhagia with regular cycle Family history of breast cancer Family history of malignant neoplasm of breast Tobacco use disorder Dietary counseling Dietary surveillance and counseling Exercise counseling documented in this encounter Additional Health Concerns Assessment Noted Time PHQ-9 Depression Total Score: 0 11/02/19 9:34 AM EST documented as of this encounter Care Teams Cork Molder Relationship Specialty Start Date End Date Nereyda Kuo FNP [address] [place] [phone] PCP - General Family Medicine 03/01/23 documented as of this encounter
--- OUTSIDE RECORDS SUMMARY | 2024-11-12 14:58 | XMS_ITS | Encounter Summary ---
Author Organization [employer] Address 75 [facility] 7t [place] [address] Care Team Providers Care Dry Cleaner Name Role Phone Nereyda Kuo GASKET NOTCHER Primary Care Provider [phone] Encounter Details Date Type Department Care Team (Latest Contact Info) Description 11/02/2024 Travel Social History Tobacco Use Types Packs/Day [...] EDT Travel History Travel Start Travel End [place] 10/12/2024 10/20/2024 documented as of this encounter Plan of Treatment Not on file documented as of this encounter Visit Diagnoses Not on filedocumented in this encounter Additional Health Concerns Assessment Noted Time PHQ-9 Depression Total Score: 0 11/02/19 25 9:34 AM EST documented as of this encounter Care Teams Dry Cleaner Relationship Specialty Start Date End Date Nereyda Kuo FNP [address] [place] [phone] PCP - General Family Medicine 03/01/23 documented as of this encounter
[2024-11-13 12:21] LABS: CT PCR NOT DETECTED (Not Detect.); NG PCR NOT DETECTED (Not Detect.)
== END 2024-11-12 10:20 | disposition home or self-care (01) ==
LOC: HO.HHCL 10:19
PROVIDERS: Registered Nurse; Visit Provider Advanced Practice Midwife
DX: Z20.2 Contact with and (suspected) exposure to infections with a predominantly sexual mode of transmission (principal); N92.0 Excessive and frequent menstruation with regular cycle; N93.9 Abnormal uterine and vaginal bleeding, unspecified
CPT/HCPCS: 36415; 82728; 84443; 85025; 87491; 87591

== ENCOUNTER 2025-05-13 08:59 | Outpatient (REF) | payer OTHER, SELFPAY ==
--- OUTSIDE RECORDS SUMMARY | 2025-05-13 09:34 | XMS_ITS | Encounter Summary ---
Author Organization [employer] Address 75 [facility] 7t [place] [address] Care Team Providers Care Corporate Trust Officer Name Role Phone Ayaan Nereyda CHILDREN'S NURSERY ASSISTANT Primary Care Provider [phone] Encounter Details Date Type Department Care Team (Late st Contact Info) Description 02/12/2025 Orders Only [facility] [address] [place] [address] Navya Rubi Social History Tobacco Use Types Packs/Day Years [...] Orientation Straight 08/16/2022 10 :39 AM EDT documented as of this encounter Plan of Treatment Not on file documented as of this encounter Procedures Procedure Name Priority Date/Time Associated Diagnosis Comments HPV MRNA E6/E7 REFLEX TO HPV 16, 18/45 Routine 09/11/2024 12:00 AM EST documented in this encounter Results * HPV mRNA E6/E7 w/Reflex to HPV Genotypes 16, 18/45 (09/11/2024 12:00 AM EST) us Historical Provider LAB CYTOLOGY ORDERABLES F inal Result Performing Organization Address City/State/[facility] Co de Phone Number [facility] [address] [place] [phone] documented in this encounter Visit Diagnoses Not on filedocumented in this encounter Additional Health Concerns Assessment Noted Time PHQ-9 Depression Total Score: 0 11/02/19 25 9:34 AM EST documented as of this encounter Care Teams Corporate Trust Officer Relationship Specialty Start Date End Date Nereyda Kuo FNP [address] [place] [phone] PCP - General Family Medicine 03/01/23 documented as of this encounter
[2025-05-13 11:37] LABS: MANUAL DIFF FLAG NO
[2025-05-13 11:41] LABS: Hematocrit 33.6 % (37.0-47.0); Hemoglobin 10.6 g/dl (12.0-16.0); Imm Gran Abs Auto 0.02 X10*3/uL (0.00-0.03); Imm Gran Pct Auto 0.3 % (0.0-0.4); Lymphocytes Absolute Auto 2.3 X10*3/uL (1.2-4.9); Mean Corpuscular HGB Conc 31.5 g/dl (31.0-35.0); Mean Corpuscular Hemoglobin 27.4 pg (27.0-33.0); Mean Corpuscular Volume 86.8 fL (80.0-98.0); NRBC Abs Auto 0.000 X10*3/uL (0.0-0.012); NRBC Pct Auto 0.0 /100WBC (0.0-0.2); Platelet Count 217 X10*3/uL (160-400); Red Blood Count 3.87 X10*6/uL (4.20-5.50); White Blood Count 6.4 X10*3/uL (4.8-10.8)
[2025-05-13 12:20] LABS: Ferritin 11 ng/mL (10-250)
== END 2025-05-13 09:00 | disposition home or self-care (01) ==
LOC: HO.HHCL 08:59
PROVIDERS: PCP Registered Nurse; Visit Provider Registered Nurse
DX: D50.0 Iron deficiency anemia secondary to blood loss (chronic) (principal)
CPT/HCPCS: 36415; 82728; 85025

== ENCOUNTER 2025-06-27 08:26 | Outpatient (REF) | payer OTHER, SELFPAY ==
--- OUTSIDE RECORDS SUMMARY | 2025-06-27 09:25 | XMS_ITS | Encounter Summary ---
Author Organization [employer] Address 75 [facility] 7t [place] [address] Care Team Providers Care Gill Tender Name Role Phone [facility] Primary Care Provider [phone] Encounter Details Date Type Department Care Team ([facility] st Contact Info) Description 05/13/2025 Results Follow-Up [facility] [address], [place] [phone] [place], [facility] [address], [place] [phone] CBC auto differential, Ferritin Social History Tobacco Use Types Packs/Day Years Used Date Smoking Tobacco: Former Cigarettes Smokeless Tobacco: Never Alcohol Use Standard Drinks/Week Comments Never 0 (1 standard drink = 0.6 oz pur e alcohol) Depression Answer Date Recorded Patient Health Questionnaire-9 Score 3 04/15/2025 Patient Health Questionnaire-9 Score 3 04/15/2025 Last PHQ-9: Questionnaire Data Not on file 0 04/15/2025 Housing Stability Answer Date Recorded What is [...] Answer Date Recorded Patient Health Questionnaire-2 Score 2 04/15/2025 Internet Access Answer Date Recorded Internet Access Q1 Yes 10/24/2024 Internet Access Q2 Not on file 10/24/2024 Comments No Sex and Gender Information Value Date Recorded Sex Assigned at Female 08/16/2022 10:39 AM EDT Legal Sex Female 10:39 AM EDT Gender Identity Female 08/16/2022 10:39 AM EDT Sexual Orientation Straight 08/16/2022 10 :39 AM EDT documented as of this encounter Miscellaneous Notes * Telephone Encounter - Hayley LimTONIO - 06/05/2025 8:26 AM EDT Triage call placed to patient who reports increased fatigue weakness and lightheadedness. No fainting. Patient at work with headache the other day and BP checks by Nurse 154/88 30 minutes later 143/89. Not on BP meds. Patient reports she does smoke. Fatigue increasing and returned home after work going to bed at 7:30pm and slept thru the night. Patient menses diary maintained with Periods: , Nov, Dec, January, . February into March 18 and April 17, Menses due no menses at time of call. No concern for post tubal ligation hx. Disposition reviewed and patient in agreement with plan. Wants PCP appt. As available. Aware PCP not available at this time. Team tasked to follow with first available PCP Clyde appt. And updatepatient unable to schedule per Triage Protocol. Reviewed with patient home care recommendations, reasons to call back and symptoms that require immediate evaluation in UC or ER. Patient verbalized understanding and agrees. Multiple (2) protocols were used on this call. Disposition for Call: See in Office or Video Visit within 2 Weeks Protocol Used: Weakness (Generalized) and Fatigue (Adult) Protocol-Based Disposition: See in Office or Video Visit within 3 Days Override (Final) Disposition: See in Office or Video Visit within 2 Weeks Override Reason: Desired specific provider Video visit not offered Positive Triage Question: * Fatigue (i.e., tires easily, decreased energy) and persists > 1 week * All higher-acuity triage questions were negative Protocol Used: Vaginal Bleeding - Abnormal (Adult) Protocol-Based Disposition: See in Office or Video Visit within 2 Weeks Positive Triage Question: * Menstrual cycle < 21 days OR > 35 days, and occurs more than two cycles (2 months) this past year * All higher-acuity triage questions were negative documented in this encounter Plan of Treatment Not on file documented as of this encounter Visit Diagnoses Not on filedocumented in this encounter Additional Health Concerns Assessment Noted Time PHQ-9 Depression Total Score: 3 04/15/20 25 9:54 AM EDT documented as of this encounter Care Teams Gill Tender Relationship Specialty Start Date End Date Nereyda Kuo FNP [address] [place] [phone] PCP - General Family Medicine 03/01/23 documented as of this encounter
--- OUTSIDE RECORDS SUMMARY | 2025-06-27 09:25 | XMS_ITS | Clinical Summary ---
Author Organization [employer] Address [address] [facility] [address] [place] [address] Care Team Providers Care Service Vehicle Operator Name Role Phone Ayaan [facility] Primary Care Provider [phone] Allergies No known active allergies Medications clotrimazole (Lotrimin) 1 % cream Apply topically 2 times daily. 40 g 1 3 Active Additional Information Patient not taking.Reported on 04/15/2025 cyclobenzaprine (Flexeril) 5 MG tabletIndicatio ns:Low back pain at multiple sites Take 1 tablet (5 mg) by mouth if needed in the morning, at noon, and at bedtime for muscle spasms. 30 tablet 1 5 11/02/19 26 Active Additional Information Patient not taking.Reported on 04/15/2025 ibuprofen 600 MG tabletIndicatio ns:Low back pain at multiple sites Take 1 tablet (600 mg) by mouth every 6 (six) hours if needed for mild pain. 30 tablet 3 5 Active Additional Information Patient not taking.Reported on 04/15/2025 ferrous gluconate (Fergon) 324 (38 Fe) MG tabletIndicatio ns:Iron deficiency anemia due to chronic blood loss Take one tablet by mouth every other day 30 tablet 11 5 Active nicotine (Nicoderm CQ) 14 MG/24HR patchIndication s:Tobacco use Place 1 patch on the skin 1 (one) time each day at the same time. 30 patch 5 07/21/20 25 Active nicotine polacrilex (Nicorette) 4 MG gumIndications: Tobacco use Chew 1 each (4 mg) if needed for smoking cessation. Do not exceed 24 pieces in a day 100 each 5 07/21/20 25 Active Drospirenone (Slynd) 4 MG tabletIndicatio ns:Abnormal uterine bleeding Take 1 tablet by mouth Once per day. 28 tablet 11 5 Active Active Problems Problem Noted Date Diagnosed Date Healthcare maintenance 03/29/2023 Overview (03/29/2023): Mammo: Routine age 40 Pap: Hx of abnormal pap. 03/2021 NIL HPV +/ 05/2022, due in April for pap; C-scope: Routine age 45 BMD: Routine age 65 Iron deficiency anemia due to chronic blood loss 03/29/2023 Overview (03/29/2023): Oral ferrous gluconate every other day Previously receiving IV iron in [place] d/t difficult tolerating s/e S/t heavy menses Anxiety 03/06/2023 Overview (03/29/2023): Sertraline 25mg daily Declined [facility] referral Tobacco use disorder 03/06/2023 Encounters Date Type Department Care Team Description 06/21/2025 11:45 AM EDT Office Visit [facility] [address] [place] [phone] Nereyda Kuo FNP Abnormal uterine bleeding (Primary Dx); Iron deficiency anemia due to chronic blood loss; Tobacco use 06/21/2025 Travel 06/14/2025 Travel 05/22/2025 Orders Only [facility] [address] [place] [phone] Nereyda Kuo FNP Iron deficiency anemia due to chronic blood loss 05/13/2025 Results Follow-Up [facility] [address] [place] [address] Nereyda Kuo FNP CBC auto differential, Ferritin 04/15/2025 9:00 AM EDT Office Visit [facility] [address] [place] [phone] Nereyda Kuo FNP Iron deficiency anemia due to chronic blood loss (Primary Dx); Encounter for immunization; Encounter for screening mammogram for breast cancer 04/15/2025 Travel 04/12/2025 Telephone [facility] [address] [place] [address] Nereyda Kuo FNP Chart Prep 04/08/2025 Patient Outreach [facility] [address] [place] [address] EsperanceNereyda FNP Pre-visit Planning (SDOH was already completed) 04/08/2025 Travel from Last 3 Months Immunizations Immunization Administration Dates Next Due DTP 04/12/1989, 6,1985,1984 DTaP / HiB / IPV 05/07/1988,07/11/1986 HPV 9-Valent 07/12/2022 HPV, Quadrivalent 11/24/2018,09/22/2018 Hep B, Adolescent or Pediatric 10/06/1998,1997,04/01/1998 IPV 04/12/1989,1985,1985 Influenza Injectable Quadriv alant Preservative Free IIV4 MDCK 07/07/2023,09/08/2022,07/22/2021 Influenza injectable quadriv alent preservative free 08/07/2020 Influenza, seasonal, injecta ble, preservative free 07/04/2024 MMR 11/08/1994,07/11/1986 TD (adult), 2 Lf tetanus tox oid, preservative free, adsorbed 04/22/2003,05/22/1992 Tdap 04/15/2025 Family History Medical History Relation Name Comments Premenopausal breast cancer Father's Sister 1 Premenopausal breast cancer Father's Sister 2 2 aunts total with breast cancer Relation Name Status Comments Father's Sister 1 Father's Sister 2 Other Social History Tobacco Use Types Packs/Day Years Used Date Smoking Tobacco: Former Cigarettes Smokeless Tobacco: Never Tobacco Cessation:Counseling Given: Not Answered Alcohol Use Standard Drinks/Week Comments Never 0 [...] Orientation Straight 08/16/2022 10 :39 AM EDT Last Filed Vital Signs Vital Sign Reading Time Taken Comments Blood Pressure 136/80 06/21/2025 11:55 AM EDT Pulse 84 06/21/2025 11:55 AM EDT Temperature 37.9 C (100.3 F) 06/21/2025 11:55 AM EDT Respiratory Rate 20 06/21/2025 11:5 5 AM EDT Oxygen Saturation 99% 11/12/2024 9:30 AM EST Inhaled Oxygen Concentration - - Weight 75.7 kg (166 lb 12.8 oz) 025 11:55 AM EDT Height 162.6 cm (5' 4 ) 06/21/2025 11:5 5 AM EDT Body Mass Index 28.63 06/21/2025 11:55 AM EDT Plan of Treatment Health Maintenance Due Date Last Done Comments Alcohol/Substance Use Screening 1997 Mammogram 2025 COVID-19 Vaccine ( season) 2025 10/06/2021, 12/03/2020, 11/05/2020 Influenza Vaccine (#1) 2025 , 07/07/2023, 09/08/2022, Additional history exists Cervical Cancer Screening 09/11/2025 HPV/Cotest 09/11/2025 09/11/2024, 08/25/2023 Pap Smear 09/11/2025 09/11/2024, 08/25/2023 SDOH Screening 10/24/2025 10/24/2024 Family Planning (PISQ) 11/12/2025 11/12/2024 Disability Screening 04/08/2026 04/08/2025 Depression Screening 04/15/2026 04/15/2025, 03/01/20 Tobacco Screening 06/26/2026 06/26/2025 Zoster Vaccines (1 of 2) 2035 DTaP/Tdap/Td Vaccines (7 - Td or Tdap) 04/15/2035 04/15/2025, 04/22/2003, 05/22/1992, Additional history exists RSV Patients and Patients Aged 60 years or older (1 - 1-dose 75+ series) 2060 HIB Vaccines Completed 05/07/1988, 07/11/1986 IPV Vaccines Completed 04/12/1989, 04/17, 07/11/1986, Additional history exists Hepatitis B Vaccines Completed 10/06/1998, 05/01/1998, 04/01/1998 HPV Vaccines Completed 07/12/2022, 05/2019, 09/22/2018 HIV Screening Completed 03/25/2023 Hepatitis C Screening Completed 03/25/2023 Hepatitis A Vaccines Aged Out No long er eligible based on patient's age to complete this topic Meningococcal B Vaccine Aged Out No l onger eligible based on patient's age to complete this topic Meningococcal Vaccine Aged Out No cecelia mai eligible based on patient's age to complete this topic Pneumococcal Vaccine: Pediatrics (0 to 5 Years) and At-Risk Patients (6 to 49) Years Aged Out No longer eligible based on patient's age to complete this topic RSV under 20 months Aged Out No longe r eligible based on patient's age to complete this topic Rotavirus Vaccines Aged Out No longer eligible based on patient's age to complete this topic Procedures Procedure Name Priority Date/Time Associated Diagnosis Comments FERRITIN Routine 05/13/2025 9:02 AM EDT Iron deficiency anemia due to chronic blood loss CBC WITH AUTO DIFFERENTIAL Routine 05/13/2025 9:02 AM EDT Iron deficiency anemia due to chronic blood loss PAP SMEAR Routine 09/11/2024 9:52 AM EST Routine cervical smear HPV MRNA E6/E7 REFLEX TO HPV 16, 18/45 Routine 09/11/2024 12:00 AM EST HEPATITIS C AB W/REFL TO HCV RNA, QN, PCR Routine 03/25/2023 8:25 AM EDT Healthcare maintenance HIV 1/2 ANTIGEN/ANTIBODY, FOURTH GENERATION W/RFL Routine 03/25/2023 8:25 AM EDT Healthcare maintenance from Last 3 Months or Most Recently Relevant to Health Maintenance Results * (ABNORMAL) CBC auto differential (05/13/2025 9:02 AM EDT) White Blood Count 6.4 4.8 - 10.8 X10*3/uL [facility] Red Blood Count 3.87(L) 4.20 - 5.50 X10*6/uL [facility] Hemoglobin 10.6(L) 12.0 - 16.0 g/dl [facility] Hematocrit 33.6(L) 37.0 - 47.0 % [facility] Mean Corpuscular Volume 86.8 80.0 - 98.0 fL [facility] Mean Corpuscular Hemoglobin 27.4 27.0 - 33.0 pg [facility] Mean Corpuscular HGB Conc 31.5 31.0 - 35.0 g/dl [facility] Red Cell Distribution Width 16.6(H) 11.0 - 16.0 % [facility] Platelet Count 217 160 - 400 X10*3/uL [facility] Mean Platelet Volume 11.6 9.4 - 12.3 fL [facility] Neutrophils Percent Auto 56.0 45 - 73 % [facility] Imm Gran Pct Auto 0.3 0.0 - 0.4 % [facility] Lymphocytes Percent Auto 35.4 20 - 40 % [facility] Monocytes Percent Auto 5.5 2 - 11 % [facility] Eosinophils Percent Auto 2.5 0 - 4 % [facility] Basophils Percent Auto 0.3 0 - 2 % [facility] NRBC Pct Auto 0.0 0.0 - 0.2 /100WBC [facility] Neutrophils Absolute Auto 3.6 2.0 - 8.3 x10*3/uL [facility] Imm Gran Abs Auto 0.02 0.00 - 0.03 X10*3/uL [facility] Lymphocytes Absolute Auto 2.3 1.2 - 4.9 X10*3/uL [facility] Monocytes Absolute Auto 0.4 0.1 - 1.2 X10*3/uL [facility] Eosinophils Absolute Auto 0.2 0.0 - 0.4 X10*3/uL [facility] Basophils Absolute Auto 0.0 0.0 - 0.2 X10*3/uL [facility] NRBC Abs Auto 0.000 0.0 - 0.012 X10*3/uL [facility] Blood Venous blood specimen / Unknown 05/13/2025 9:02 AM EDT 05/13/2025 11:33 AM EDT [facility] STRANDING MACHINE OPERATOR LAB BLOOD ORDERABLES Final Re sult [facility] [address] [place] [address] [phone] * Ferritin (05/13/2025 9:02 AM EDT) Ferritin 11 10 - 250 ng/mL [facility] Blood Venous blood specimen / Unknown 05/13/2025 9:02 AM EDT 05/13/2025 11:31 AM EDT [facility] STRANDING MACHINE OPERATOR LAB BLOOD ORDERABLES Final Re sult [facility] [address] [place] [phone] * Pap Smear (09/11/2024 9:52 AM EST) Swab Cervix uteri structure / Unknown 09/11/2024 9:52 AM EST 09/12/2024 8:30 AM EST Narrative [facility] - 09/19/2024 10:33 AM EST ----- ------- Name: LinoSara Age/Sex: 39/F : 1985 Unit#: [id number] Attend Dr: BONNIE SULLIVAN CNM Re09/11/24 Status: DEP REF Location: [facility] Disch: ----- ------- SPEC : [id number] RECD: 09/12/24 STATUS: HEATHER CERVANTES NUM: [id number] TRAE: 09/11/[address]: BONNIE SULLIVAN CNM ENTERED: 09/12/24 SP TYPE: Pap Smr OTHR DR: ORDERED: Pap Smear Interpretation Satisfactory for evaluation. Negative for intraepithelial lesion or malignancy. Coccobacilli consistent with shift in vaginal jojo. HPV High Risk: Negative HPV Genotyping 16: Negative HPV Genotyping 18: Negative Clinical Information LMP: 09/03/2024 Previous PAP test: Unknown date, HPV + Material Received ThinPrep-Cervical ----- ------- Signed (signature on file) AMANDA Fletcher (ASCP) 09/19/24 1033 ----- ------- END OF REPORT Bonnie ROY LAB CYTOLOGY ORDERABLES F inal Result Performing Organization Address [facility] Co de Phone Number [facility] [address] [place] [phone] * HPV mRNA E6/E7 w/Reflex to HPV Genotypes 16, 18/45 (09/11/2024 12:00 AM EST) [facility] Provider MD LAB CYTOLOGY ORDERABLES F inal Result Performing Organization Address [facility] Co de Phone Number [facility] [address] [place] [phone] * Hepatitis C Antibody with Reflex to HCV, RNA, Quantitative, Real-Time PCR (03/25/2023 8:25 AM EDT) Hepatitis C Antibody NON-REACT KATIE NON-REACT KATIE [facility] Index <0.02 <1.00 [facility] Comment: HCV antibody was non-reactive. There is no laboratory evidence of HCV infection. In most cases, no further action is required. However, if recent HCV exposure is suspected, a test for HCV RNA (test code 88082) is suggested. For additional information please refer to http://YAMAP.Zalando/faq/DYD51u5 (This link is being provided for informational/ educational purposes only.) Blood Venous blood specimen / Unknown 03/25/2023 8:25 AM EDT 03/25/2023 8:26 AM EDT Narrative [facility] - 03/27/2023 11:14 AM EDT FASTING:YES FASTING: YES [facility] LAB BLOOD ORDERABLES Final Re sult [facility] [address], [place] [address] [employer] [place] [facility] [address] [place] [phone] * HIV-1/2 Antigen and Antibodies, Fourth Generation, with Reflexes (03/25/2023 8:25 AM EDT) HIV Antigen/Antibody, 4th Generation NON-REAC TIVE NON-REAC TIVE [facility] [place] [facility] Comment: HIV-1 antigen and HIV-1/HIV-2 antibodies were not detected. There is no laboratory evidence of HIV infection. PLEASE NOTE: This information has been disclosed to you from records whose confidentiality may be protected by state law. If your state requires such protection, then the state law prohibits you from making any further disclosure of the information without the specific written consent of the person to whom it pertains, or as otherwise permitted by law. A general authorization for the release of medical or other information is NOT sufficient for this purpose. For additional information please refer to [email or web address]/faq/[email or web address] (This link is being provided for informational/ educational purposes only.) The performance of this assay has not been clinically validated in patients less than 2 years old. Blood Venous blood specimen / Unknown 03/25/2023 8:25 AM EDT 03/25/2023 8:26 AM EDT Narrative [facility] - 03/27/2023 11:14 AM EDT FASTING:YES FASTING: YES [facility] LAB BLOOD ORDERABLES Final Re sult [facility] [address], [place] [address] [facility] [address] [place] [address] from Last 3 Months or Most Recently Relevant to Health Maintenance Insurance , [address] [place] [address] Care Teams Service Vehicle Operator Relationship Specialty Start Date End Date [facility] [address] [place] [phone] PCP - General Family Medicine 03/01/23
--- OUTSIDE RECORDS SUMMARY | 2025-06-27 09:25 | XMS_ITS | Encounter Summary ---
Author Organization [employer] Address [address] [facility] 7[address] [place] [address] Care Team Providers Care Safety Investigator Name Role Phone Ayaan Nereyda SYSTEMS TECHNICIAN Primary Care Provider Encounter Details Date Type Department Care Team (Late st Contact Info) Description 02/12/2025 Orders Only [facility] [address] [place] [address] Navya Rubi Social History Tobacco Use Types [...] ORDERABLES F inal Result Performing Organization Address City/State/[facility] Co de Phone Number [facility] [address] [place] [phone] documented in this encounter Visit Diagnoses Not on filedocumented in this encounter Additional Health Concerns Assessment Noted Time PHQ-9 Depression Total Score: 0 11/02/19 25 9:34 AM EST documented as of this encounter Care Teams Safety Investigator Relationship Specialty Start Date End Date Nereyda Kuo FNP [address] [place] [phone] PCP - General Family Medicine 03/01/23 documented as of this encounter
[2025-06-27 11:39] LABS: MANUAL DIFF FLAG NO
[2025-06-27 11:41] LABS: Hematocrit 35.8 % (37.0-47.0); Hemoglobin 11.6 g/dl (12.0-16.0); Imm Gran Abs Auto 0.01 X10*3/uL (0.00-0.03); Imm Gran Pct Auto 0.2 % (0.0-0.4); Lymphocytes Absolute Auto 1.8 X10*3/uL (1.2-4.9); Mean Corpuscular HGB Conc 32.4 g/dl (31.0-35.0); Mean Corpuscular Hemoglobin 27.8 pg (27.0-33.0); Mean Corpuscular Volume 85.9 fL (80.0-98.0); NRBC Abs Auto 0.000 X10*3/uL (0.0-0.012); NRBC Pct Auto 0.0 /100WBC (0.0-0.2); Platelet Count 204 X10*3/uL (160-400); Red Blood Count 4.17 X10*6/uL (4.20-5.50); White Blood Count 4.3 X10*3/uL (4.8-10.8)
[2025-06-27 12:26] LABS: Ferritin 18 ng/mL (10-250)
== END 2025-06-27 08:27 | disposition home or self-care (01) ==
LOC: HO.HHCL 08:26
PROVIDERS: PCP Registered Nurse; Visit Provider Registered Nurse
DX: D50.0 Iron deficiency anemia secondary to blood loss (chronic) (principal)
CPT/HCPCS: 36415; 82728; 84443; 85025

== ENCOUNTER 2025-07-03 14:55 | Outpatient (REF) | payer OTHER, SELFPAY ==
--- OUTSIDE RECORDS SUMMARY | 2025-07-03 18:29 | XMS_ITS | Encounter Summary ---
Author Organization [employer] Address [address] [facility] 7[address] [place] [address] Care Team Providers Care Mechanical Design Technician Name Role Phone Ayaan Nereyda ROLLER HELPER Primary Care Provider [phone] Encounter Details Date Type Department Care Team (Late st Contact Info) Description 02/12/2025 Orders Only [facility] [address] [place] [address] Navya Rubi Social History Tobacco Use Types [...] ORDERABLES F inal Result Performing Organization Address City/State/[facility] Co de Phone Number [facility] [address] [place] [phone] documented in this encounter Visit Diagnoses Not on filedocumented in this encounter Additional Health Concerns Assessment Noted Time PHQ-9 Depression Total Score: 0 11/02/19 25 9:34 AM EST documented as of this encounter Care Teams Mechanical Design Technician Relationship Specialty Start Date End Date Nereyda Kuo FNP [address] [place] [phone] PCP - General Family Medicine 03/01/23 documented as of this encounter
--- OUTSIDE RECORDS SUMMARY | 2025-07-03 18:29 | XMS_ITS | Clinical Summary ---
Author Organization [employer] Address 75 [facility] 7t [place] [address] Care Team Providers Care Electric Switch Tester Name Role Phone Ayaan [facility] Primary Care Provider [phone] Allergies No known active allergies Medications clotrimazole [...] per day. 28 tablet 11 5 Active nicotine polacrilex (Commit) 4 MG lozenge Dissolve 1 lozenge (4 mg) in the mouth every 2 (two) hours if needed for smoking cessation. 100 lozenge 1 5 08/01/20 25 Active Active Problems Problem Noted Date Diagnosed Date Healthcare maintenance 03/29/2023 Overview (03/29/2023): Mammo: Routine age 40 Pap: Hx of abnormal pap. 03/2021 NIL HPV +/ 05/2022, due in April for pap; C-scope: Routine age 45 BMD: Routine age 65 Iron deficiency anemia due to chronic blood loss 03/29/2023 Overview (03/29/2023): Oral ferrous gluconate every other day Previously receiving IV iron in ID d/t difficult tolerating s/e S/t heavy menses Anxiety 03/06/2023 Overview (03/29/2023): Sertraline 25mg daily Declined N referral Tobacco use disorder 03/06/2023 Encounters Date Type Department Care Team Description 07/02/2025 Orders Only [facility] [address] [place] [address] Jacob Brown MD 07/01/2025 Results Follow-Up [facility] [address] [place] [phone] Nereyda Kuo FNP CBC auto differential, Ferritin, TSH W/Reflex to FT4 06/21/2025 11:45 AM EDT Office Visit [facility] [address] [place] [address] [phone] Nereyda Kuo FNP Abnormal uterine bleeding (Primary Dx); Iron deficiency anemia due to chronic blood loss; Tobacco use 06/21/2025 Travel 06/14/2025 Travel 05/22/2025 Orders Only [facility] [address] [place] [address] [phone] Nereyda Kuo FNP Iron deficiency anemia due to chronic blood loss 05/13/2025 Results Follow-Up [facility] [address] [place] [address] Nereyda Kuo FNP CBC auto differential, Ferritin 04/15/2025 9:00 AM EDT Office Visit [facility] [address] [place] [address] Nereyda Kuo FNP Iron deficiency anemia due to chronic blood loss (Primary Dx); Encounter for immunization; Encounter for screening mammogram for breast cancer 04/15/2025 Travel 04/12/2025 Telephone [facility] [address] [place], [place] [phone] Nereyda Kuo FNP Chart Prep 04/08/2025 Patient Outreach [facility] [address] [place] [address] Nereyda Kuo FNP Pre-visit Planning (SDOH was already completed) [...] 04/08/2026 04/08/2025 Depression Screening 04/15/2026 04/15/2025, 03/01/20 23 Tobacco Screening 06/26/2026 06/26/2025 Zoster Vaccines (1 [...] Diagnosis Comments TSH W/REFLEX TO FT4 Routine 06/27/2025 8 :47 AM EDT Iron deficiency anemia due to chronic blood loss FERRITIN Routine 06/27/2025 8:47 AM EDT Iron deficiency anemia due to chronic blood loss CBC WITH AUTO DIFFERENTIAL Routine 06/27/2025 8:47 AM EDT Iron deficiency anemia due to chronic blood loss FERRITIN Routine 05/13/2025 9:02 AM EDT Iron [...] Maintenance Results * TSH W/Reflex to FT4 (06/27/2025 8:47 AM EDT) Pathologist [facility] TSH reflex Free T4 1.41 0.32 - 4.0 uIU/mL [facility] Blood Venous blood specimen / Unknown 06/27/2025 8:47 AM EDT 06/27/2025 11:41 AM EDT [facility] LAB BLOOD ORDERABLES Final Re sult [facility] [address] [place] [address] [phone] * (ABNORMAL) CBC auto differential (06/27/2025 8:47 AM EDT) Only the most recent of2 resultswithin the time period is included. Pathologist [facility] White Blood Count 4.3(L) 4.8 - 10.8 X10*3/uL [facility] Red Blood Count 4.17(L) 4.20 - 5.50 X10*6/uL [facility] Hemoglobin 11.6(L) 12.0 - 16.0 g/dl [facility] Hematocrit 35.8(L) 37.0 - 47.0 % [facility] Mean Corpuscular Volume 85.9 80.0 - 98.0 fL [facility] Mean Corpuscular Hemoglobin 27.8 27.0 - 33.0 pg [facility] Mean Corpuscular HGB Conc 32.4 31.0 - 35.0 g/dl [facility] Red Cell Distribution Width 14.9 11.0 - 16.0 % [facility] Platelet Count 204 160 - 400 X10*3/uL [facility] Mean Platelet Volume 11.7 9.4 - 12.3 fL [facility] Neutrophils Percent Auto 50.1 45 - 73 % [facility] Imm Gran Pct Auto 0.2 0.0 - 0.4 % [facility] Lymphocytes Percent Auto 41.5(H) 20 - 40 % [facility] Monocytes Percent Auto 5.2 2 - 11 % [facility] Eosinophils Percent Auto 2.8 0 - 4 % [facility] Basophils Percent Auto 0.2 0 - 2 % [facility] NRBC Pct Auto 0.0 0.0 - 0.2 /100WBC [facility] Neutrophils Absolute Auto 2.1 2.0 - 8.3 x10*3/uL [facility] Imm Gran Abs Auto 0.01 0.00 - 0.03 X10*3/uL [facility] Lymphocytes Absolute Auto 1.8 1.2 - 4.9 X10*3/uL [facility] Monocytes Absolute Auto 0.2 0.1 - 1.2 X10*3/uL [facility] Eosinophils Absolute Auto 0.1 0.0 - 0.4 X10*3/uL [facility] Basophils Absolute Auto 0.0 0.0 - 0.2 X10*3/uL [facility] NRBC Abs Auto 0.000 0.0 - 0.012 X10*3/uL [facility] Blood Venous blood specimen / Unknown 06/27/2025 8:47 AM EDT 06/27/2025 11:35 AM EDT [facility] LAB BLOOD ORDERABLES Final Re sult Performing Organization Address City/[facility]/ZIP Co de Phone Number [facility] [address] [place] [address] [phone] * Ferritin (06/27/2025 8:47 AM EDT) Only the most recent of2 resultswithin the time period is included. Ferritin 18 10 - 250 ng/mL [facility] Blood Venous blood specimen / Unknown 06/27/2025 8:47 AM EDT 06/27/2025 11:41 AM EDT [facility] LAB BLOOD ORDERABLES Final Re sult Performing Organization Address City/[facility]/ZIP Co de Phone Number [facility] [address] [place] [address] [phone] * Pap Smear (09/11/2024 9:52 AM EST) Swab Cervix uteri structure / Unknown 09/11/2024 9:52 AM EST 09/12/2024 8:30 AM EST [facility] - 09/19/2024 10:33 AM EST ----- ------- Name: Sara Lino Age/Sex: 39/F : 1985 Unit#: [id number] Attend Dr: BONNIE SULLIVAN CNM Re09/11/24 Status: DEP REF Location: HO.HHCLNP Disch: ----- ------- SPEC : [id number] RECD: 09/12/24 STATUS: HEATHER CERVANTES NUM: [id number] TRAE: 09/11/24 [facility] DR: BONNIE SULLIVAN CNM ENTERED: 09/12/24 SP TYPE: Pap [facility] OT : ORDERED: Pap Smear Interpretation Satisfactory for evaluation. Negative for intraepithelial lesion or malignancy. Coccobacilli consistent with shift in vaginal jojo. HPV High Risk: Negative HPV Genotyping 16: Negative HPV Genotyping 18: Negative Clinical Information LMP: 09/03/2024 Previous PAP test: Unknown date, HPV + Material Received ThinPrep-Cervical ----- ------- Signed (signature on file) AMANDA Fletcher ([facility]) 09/19/24 1033 ----- ------- END OF REPORT Bonnie Sullivan [facility] LAB CYTOLOGY ORDERABLES F inal Result Performing Organization Address [facility] Co de Phone Number [facility] [address] [place] [phone] * HPV mRNA E6/E7 w/Reflex to HPV Genotypes 16, 18/45 (09/11/2024 12:00 AM EST) [facility] Provider MD LAB CYTOLOGY ORDERABLES F inal Result Performing Organization Address [facility] Co de Phone Number [facility] [address] [place] [address] [phone] * Hepatitis C Antibody with Reflex to HCV, RNA, Quantitative, Real-Time PCR (03/25/2023 8:25 AM EDT) Hepatitis C Antibody NON-REACT KATIE NON-REACT KATIE [employer] [place] Index <0.02 <1.00 [employer] [place] Comment: HCV antibody was non-reactive. There is no laboratory evidence of HCV infection. In most cases, no further action is required. However, if recent HCV exposure is suspected, a test for HCV RNA (test code 67209) is suggested. For additional information please refer to http://HouseCall.doo/faq/DYZ12b9 (This link is being provided for informational/ educational purposes only.) Blood Venous blood specimen / Unknown 03/25/2023 8:25 AM EDT 03/25/2023 8:26 AM EDT Narrative [facility] - 03/27/2023 11:14 AM EDT FASTING:YES FASTING: YES [facility] LAB BLOOD ORDERABLES Final Re sult [facility] [address] [facility], [place] [address] [employer] [place] [address] [place] [phone] * HIV-1/2 Antigen and Antibodies, Fourth Generation, with Reflexes (03/25/2023 8:25 AM EDT) Pathologist [facility] HIV Antigen/Antibody, 4th Generation NON-REAC TIVE NON-REAC TIVE [employer] [place] [employer] [facility] Comment: HIV-1 antigen and HIV-1/HIV-2 antibodies [...] purpose. For additional information please refer to http://HouseCall.doo/faq/MGK465 (This link is being provided for informational/ educational purposes only.) The performance of this assay has not been clinically validated in patients less than 2 years old. Blood Venous blood specimen / Unknown 03/25/2023 8:25 AM EDT 03/25/2023 8:26 AM EDT Narrative [facility] - 03/27/2023 11:14 AM EDT FASTING:YES FASTING: YES [facility] LAB BLOOD ORDERABLES Final Re sult [facility] [address], [place] [address] [employer] [place] [facility] [address] [place] [phone] from Last 3 Months or Most Recently Relevant to Health Maintenance Insurance [place] [address] [address] , [address] [place] [phone] Care Teams Electric Switch Tester Relationship Specialty Start Date End Date [facility] [address] [place] [phone] PCP - General Family Medicine 03/01/23
--- OUTSIDE RECORDS SUMMARY | 2025-07-03 18:29 | XMS_ITS | Encounter Summary ---
Author Organization [employer] Address 75 [facility] 7t [place] [address] Care Team Providers Care Insole Cementer Name Role Phone Ayaan Nereyda [employer] Primary Care Provider [phone] Encounter Details Date Type Department Care Team (Late st Contact Info) Description 07/02/2025 Orders Only [facility] [address] [place], [place] [phone] Jacob Brown MD [address] [place] [address] Social History Tobacco Use Types Packs/Day Years [...] documented as of this encounter Care Teams Insole Cementer Relationship Specialty Start Date End Date Nereyda Kuo FNP [address] [place] [phone] PCP - General Family Medicine 03/01/23 documented as of this encounter
--- OUTSIDE RECORDS SUMMARY | 2025-07-03 18:29 | XMS_ITS | Encounter Summary ---
Author Organization [employer] Address [address] [facility] [address]t [place] [address] Care Team Providers Care Trench Pipe Layer Helper Name Role Phone [place] [facility] Primary Care Provider [phone] Encounter Details Date Type Department Care Team ([facility] st Contact Info) Description 05/13/2025 Results Follow-Up [facility] [address] [place], [place] [phone] [place], [facility] [address] [place], [place] [phone] CBC auto differential, Ferritin Social History Tobacco [...] documented as of this encounter Care Teams Trench Pipe Layer Helper Relationship Specialty Start Date End Date Nereyda Kuo FNP [address] [place] [phone] PCP - General Family Medicine 03/01/23 documented as of this encounter
--- OUTSIDE RECORDS SUMMARY | 2025-07-03 18:29 | XMS_ITS | Encounter Summary ---
Author Organization [employer] Address [address] [facility] 7t [place] [address] Care Team Providers Care Cook Starch Name Role Phone [place] [facility] Primary Care Provider [phone] Encounter Details Date Type Department Care Team (Late st Contact Info) Description 07/01/2025 Results Follow-Up [facility] [address] [place], [place] [phone] [place] [facility] [address] [place], [place] [phone] CBC auto differential, Ferritin, TSH W/Reflex to FT4 Social History Tobacco Use Types Packs/Day Years [...] documented as of this encounter Care Teams Cook Starch Relationship Specialty Start Date End Date Nereyda Kuo FNP [address] [place] [phone] PCP - General Family Medicine 03/01/23 documented as of this encounter
== END 2025-07-03 14:56 | disposition home or self-care (01) ==
LOC: HO.MAMMO 14:55
PROVIDERS: PCP Registered Nurse; Visit Provider Registered Nurse
DX: Z12.31 Encounter for screening mammogram for malignant neoplasm of breast (principal)
CPT/HCPCS: 77063; 77067

== ENCOUNTER → 2025-07-03 15:15 | Outpatient (BNV) | payer OTHER, SELFPAY | PROVIDERS: PCP Registered Nurse; Visit Provider Internal Medicine | DX: Z12.31 Encounter for screening mammogram for malignant neoplasm of breast (principal) | CPT/HCPCS: 77063; 77067 ==

== ENCOUNTER 2025-07-05 08:47 | Outpatient (REF) | payer OTHER, SELFPAY ==
--- NOTE | ~2025-07-05 | US_ITS ---
EXAMINATION: US PELVIS TRANSABDOMINAL AND TRANSVAGINAL HISTORY: 40 y.o F with abnormal uterine bleeding COMPARISON: Comparison is made with the prior examination dated 09/16/2023. TECHNIQUE: Transabdominal and endovaginal real-time 2D guillermo-scale ultrasound was performed. FINDINGS: Uterus: The uterus is normal in size, measuring 9.8 x 4.8 x 6.2 cm. Myometrium has a normal echotexture. No fibroids are identified. Endometrium: The endometrial stripe measures 10 mm in thickness. There are nabothian cysts in the cervix. Right ovary: The right ovary measures 2.4 x 1.4 x 1.4 cm. The right ovary is normal in size and echotexture. Left ovary: The left ovary measures 3.5 x 2.0 x 2.8 cm. The left ovary is normal in size and echotexture, demonstrating a dominant follicle. Pelvic fluid: none. US/US pelvic and transvaginal IMPRESSION: Nabothian cysts in the cervix. Otherwise unremarkable pelvic ultrasound. Electronically signed by: Sukumar Chinchilla MD 07/05/2025 10:18 AM EDT
--- OUTSIDE RECORDS SUMMARY | 2025-07-05 09:26 | XMS_ITS | Encounter Summary ---
Author Organization [employer] Address 75 [facility] [address]t [place] [address] Care Team Providers Care Artificial Insemination Technician Name Role Phone [place] [facility] Primary Care Provider [phone] Encounter Details Date Type Department Care Team ([facility] st Contact Info) Description 05/13/2025 Results Follow-Up [facility] [address] [place], [place] [phone] [place], [facility] [address] [place], [place] [phone] CBC auto differential, Ferritin Social History Tobacco [...] documented as of this encounter Care Teams Artificial Insemination Technician Relationship Specialty Start Date End Date Nereyda Kuo FNP [address] [place] [phone] PCP - General Family Medicine 03/01/23 documented as of this encounter
--- OUTSIDE RECORDS SUMMARY | 2025-07-05 09:26 | XMS_ITS | Encounter Summary ---
Author Organization [employer] Address 75 [facility] [address]t [place] [address] Care Team Providers Care Digital Sales Assistant Name Role Phone [place] [facility] Primary Care Provider [phone] Encounter Details Date Type Department Care Team (Late st Contact Info) Description 07/01/2025 Results Follow-Up [facility] [address] [place], [place] [phone] [place] [facility] [address] [place], [place] [phone] CBC auto differential, Ferritin, TSH W/Reflex to [...] documented as of this encounter Care Teams Digital Sales Assistant Relationship Specialty Start Date End Date Nereyda Kuo FNP [address] [place] [phone] PCP - General Family Medicine 03/01/23 documented as of this encounter
--- OUTSIDE RECORDS SUMMARY | 2025-07-05 09:26 | XMS_ITS | Encounter Summary ---
Author Organization [employer] Address [address] [facility] [address] [place] [address] Care Team Providers Care Circus Hand Name Role Phone Ayaan Nereyda INSTRUCTOR OF SOCIOLOGY Primary Care Provider [phone] Encounter Details Date Type Department Care Team (Late st Contact Info) Description 02/12/[address] [facility] [address] [place] [address] Navya Rubi Social History Tobacco Use Types [...] ORDERABLES F inal Result Performing Organization Address City/State/[facility] Co de Phone Number [facility] [address] [place] [phone] documented in this encounter Visit Diagnoses Not on filedocumented in this encounter Additional Health Concerns Assessment Noted Time PHQ-9 Depression Total Score: 0 11/02/19 25 9:34 AM EST documented as of this encounter Care Teams Circus Hand Relationship Specialty Start Date End Date Nereyda Kuo FNP [address] [place] [phone] PCP - General Family Medicine 03/01/23 documented as of this encounter
--- OUTSIDE RECORDS SUMMARY | 2025-07-05 09:26 | XMS_ITS | Encounter Summary ---
Author Organization [employer] Address 75 [facility] [address]t [place] [address] Care Team Providers Care Accountant Machine Processing Name Role Phone Ayaan Nereyda BI DATA ARCHITECT Primary Care Provider Encounter Details Date Type Department Care Team (Late st Contact Info) Description 07/02/2025 Orders Only [facility] [address] [place], [place] [phone] Jacob Brown MD [address] [place] [address] Social History Tobacco Use Types Packs/Day Years [...] documented as of this encounter Care Teams Accountant Machine Processing Relationship Specialty Start Date End Date Nereyda Kuo FNP [address] [place] [phone] PCP - General Family Medicine 03/01/23 documented as of this encounter
--- OUTSIDE RECORDS SUMMARY | 2025-07-05 09:26 | XMS_ITS | Clinical Summary ---
Author Organization [employer] Address [address] [facility] 7t [place] [address] Care Team Providers Care Purchasing Clerk Name Role Phone Ayaan [facility] Primary Care Provider [phone] Allergies No known active allergies Medications clotrimazole [...] other day Previously receiving IV iron in [place] d/t difficult tolerating s/e S/t heavy menses Anxiety 03/06/2023 Overview (03/29/2023): Sertraline 25mg daily Declined N referral Tobacco use disorder 03/06/2023 Encounters Date Type Department Care Team Description 07/02/2025 Orders Only [facility] [address] [place] [address] Jacob Brown MD 07/01/2025 Results Follow-Up [facility] [address] [place] [phone] Nereyda Kuo FNP CBC auto differential, Ferritin, TSH W/Reflex to FT4 06/21/2025 11:45 AM EDT Office Visit [facility] [address] [place] [address] [phone] Nereyda Kuo FNP Abnormal uterine bleeding (Primary Dx); Iron deficiency anemia due to chronic blood loss; Tobacco use 06/21/2025 Travel 06/14/2025 Travel 05/22/2025 Orders Only [facility] [address] [place] [address] [phone] Nereyda Kuo FNP Iron deficiency anemia due to chronic blood loss 05/13/2025 Results Follow-Up [facility] [address] [place] [address] Nereyda Kuo FNP CBC auto differential, Ferritin 04/15/2025 9:00 AM EDT Office Visit [facility] [address] [place] [address] Nereyda Kuo FNP Iron deficiency anemia due to chronic blood loss (Primary Dx); Encounter for immunization; Encounter for screening mammogram for breast cancer 04/15/2025 Travel 04/12/2025 Telephone [facility] [address] [place], [place] [phone] Nereyda Kuo FNP Chart Prep 04/08/2025 Patient Outreach [facility] [address] [place] [address] Nereyda Kuo FNP Pre-visit Planning (SDOH was [...] FT4 (06/27/2025 8:47 AM EDT) Pathologist [facility] TSH reflex Free T4 1.41 0.32 - 4.0 uIU/mL LABS Blood Venous blood specimen / Unknown 06/27/2025 8:47 AM EDT 06/27/2025 11:41 AM EDT [facility] LAB BLOOD ORDERABLES Final Re sult LABS [address] [place] [address] [phone] * (ABNORMAL) CBC auto differential (06/27/2025 8:47 AM EDT) Only the most recent of2 resultswithin the time period is included. Pathologist [facility] White Blood Count 4.3(L) 4.8 - 10.8 X10*3/uL LABS Red Blood Count 4.17(L) 4.20 - 5.50 X10*6/uL LABS Hemoglobin 11.6(L) 12.0 - 16.0 g/dl LABS Hematocrit 35.8(L) 37.0 - 47.0 % LABS Mean Corpuscular Volume 85.9 80.0 - 98.0 fL LABS Mean Corpuscular Hemoglobin 27.8 27.0 - 33.0 pg LABS Mean Corpuscular HGB Conc 32.4 31.0 - 35.0 g/dl LABS Red Cell Distribution Width 14.9 11.0 - 16.0 % LABS Platelet Count 204 160 - 400 X10*3/uL LABS Mean Platelet Volume 11.7 9.4 - 12.3 fL LABS Neutrophils Percent Auto 50.1 45 - 73 % LABS Imm Gran Pct Auto 0.2 0.0 - 0.4 % LABS Lymphocytes Percent Auto 41.5(H) 20 - 40 % LABS Monocytes Percent Auto 5.2 2 - 11 % LABS Eosinophils Percent Auto 2.8 0 - 4 % LABS Basophils Percent Auto 0.2 0 - 2 % LABS NRBC Pct Auto 0.0 0.0 - 0.2 /100WBC LABS Neutrophils Absolute Auto 2.1 2.0 - 8.3 x10*3/uL LABS Imm Gran Abs Auto 0.01 0.00 - 0.03 X10*3/uL LABS Lymphocytes Absolute Auto 1.8 1.2 - 4.9 X10*3/uL LABS Monocytes Absolute Auto 0.2 0.1 - 1.2 X10*3/uL LABS Eosinophils Absolute Auto 0.1 0.0 - 0.4 X10*3/uL LABS Basophils Absolute Auto 0.0 0.0 - 0.2 X10*3/uL LABS NRBC Abs Auto 0.000 0.0 - 0.012 X10*3/uL LABS Blood Venous blood specimen / Unknown 06/27/2025 8:47 AM EDT 06/27/2025 11:35 AM EDT [facility] LAB BLOOD ORDERABLES Final Re sult Performing Organization Address City/[facility]/ZIP Co de Phone Number LABS [address] [place] [address] [phone] * Ferritin (06/27/2025 8:47 AM EDT) Only the most recent of2 resultswithin the time period is included. Ferritin 18 10 - 250 ng/mL LABS Blood Venous blood specimen / Unknown 06/27/2025 8:47 AM EDT 06/27/2025 11:41 AM EDT [facility] LAB BLOOD ORDERABLES Final Re sult Performing Organization Address City/[facility]/ZIP Co de Phone Number LABS [address] [place] [phone] * Pap Smear (09/11/2024 9:52 AM EST) Swab Cervix uteri structure / Unknown 09/11/2024 9:52 AM EST 09/12/2024 8:30 AM EST [facility] LABS - 09/19/2024 10:33 AM EST ----- ------- Name: Sara Lino Age/Sex: 39/F : 1985 Unit#: [id number] Attend Dr: BONNIE SULLIVAN CNM Re09/11/24 Status: DEP REF Location: HO.HHCLNP Disch: ----- ------- SPEC : [id number] RECD: 09/12/24 STATUS: HEATHER CERVANTES NUM: [id number] TRAE: 09/11/24 [facility] DR: BONNIE SULLIVAN CNM ENTERED: 09/12/24 SP TYPE: Pap [facility] OT : ORDERED: Pap Smear Interpretation Satisfactory for evaluation. Negative for intraepithelial lesion or malignancy. Coccobacilli consistent with shift in vaginal jojo. HPV High Risk: Negative HPV Genotyping 16: Negative HPV Genotyping 18: Negative Clinical Information LMP: 09/03/2024 Previous PAP test: Unknown date, HPV + Material Received ThinPrep-Cervical ----- ------- Signed (signature on file) AMANDA Fletcher ([facility]) 09/19/24 1033 ----- ------- END OF REPORT Bonnie Sullivan [facility] LAB CYTOLOGY ORDERABLES F inal Result Performing Organization Address [facility] [[email or web address]] Co de Phone Number LABS [address] [place] [phone] * HPV mRNA E6/E7 w/Reflex to HPV Genotypes 16, 18/45 (09/11/2024 12:00 AM EST) [facility] Provider MD LAB CYTOLOGY ORDERABLES F inal Result Performing Organization Address [facility] [[email or web address]] Co de Phone Number LABS [address] [place] [address] [phone] * Hepatitis C Antibody with Reflex to HCV, RNA, Quantitative, Real-Time PCR (03/25/2023 8:25 AM EDT) Hepatitis C Antibody NON-REACT KATIE NON-REACT KATIE [employer] [facility] Index <0.02 <1.00 [facility] Comment: HCV antibody was non-reactive. There is no laboratory evidence of HCV infection. In most cases, no further action is required. However, if recent HCV exposure is suspected, a test for HCV RNA (test code 11755) is suggested. For additional information please refer to http://[employer].DeNA/faq/SXR00r4 (This link is being provided for informational/ educational purposes only.) Blood Venous blood specimen / Unknown 03/25/2023 8:25 AM EDT 03/25/2023 8:26 AM EDT Narrative [facility] - 03/27/2023 11:14 AM EDT FASTING:YES FASTING: YES [facility] LAB BLOOD ORDERABLES Final Re sult [facility] [address] [facility], [facility], [place] [phone] [employer] [facility] [address] [place] [phone] * HIV-1/2 Antigen and Antibodies, Fourth Generation, with Reflexes (03/25/2023 8:25 AM EDT) Pathologist [facility] HIV Antigen/Antibody, 4th Generation NON-REAC TIVE NON-REAC TIVE [employer] [facility] [facility] Comment: HIV-1 antigen and HIV-1/HIV-2 antibodies [...] purpose. For additional information please refer to http://[employer].DeNA/faq/ZAC412 (This link is being provided for informational/ educational purposes only.) The performance of this assay has not been clinically validated in patients less than 2 years old. Blood Venous blood specimen / Unknown 03/25/2023 8:25 AM EDT 03/25/2023 8:26 AM EDT Narrative [facility] - 03/27/2023 11:14 AM EDT FASTING:YES FASTING: YES [facility] LAB BLOOD ORDERABLES Final Re sult [facility] [address], [place] [address] [facility] [facility] [address] [place] [phone] from Last 3 Months or Most Recently Relevant to Health Maintenance [place] [address] [place] [address] , [address] [place] [phone] Care Teams Purchasing Clerk Relationship Specialty Start Date End Date [facility] [address] [place] [phone] PCP - General Family Medicine 03/01/23
== END 2025-07-05 08:48 | disposition home or self-care (01) ==
LOC: HO.US 08:47
PROVIDERS: PCP Registered Nurse; Visit Provider Registered Nurse
DX: N93.9 Abnormal uterine and vaginal bleeding, unspecified (principal)
CPT/HCPCS: 76830; 76856

== ENCOUNTER → 2025-07-05 08:49 | Outpatient (BNV) | payer OTHER, SELFPAY | PROVIDERS: PCP Registered Nurse; Visit Provider Radiology Diagnostic Radiology | DX: N93.9 Abnormal uterine and vaginal bleeding, unspecified (principal) | CPT/HCPCS: 76830; 76856 ==

== ENCOUNTER 2025-09-05 15:59 | Outpatient (REF) | payer OTHER, SELFPAY ==
--- OUTSIDE RECORDS SUMMARY | 2025-09-05 09:30 | XMS_ITS | Encounter Summary ---
Author Organization [employer] Address [address] [facility] 7t [place] [address] Care Team Providers Care Operations Specialists Name Role Phone Ayaan Nereyda TRIMMER LOADER Primary Care Provider [phone] Encounter Details Date Type Department Care Team (Latest Contact Info) Description 09/05/2025 9:30 AM EST Procedure Visit [facility] [address] [place], [place] [phone] Bonnie Laughlin CN [address] [place], [place] [phone] Cervical cancer screening (Primary Dx); Abnormal uterine bleeding Social History Tobacco Use Types Packs/Day Years Used Date Smoking Tobacco: Former Cigarettes Passive Smoke Exposure: Past Smokeless Tobacco: Never Tobacco Cessation:Counseling Given: Not [...] Q2 Not on file 10/24/2024 Comments No Intention Date Recorded No desire to become (finding) 1 11/05/2024 Sex and Gender Information Value Date Recorded Sex Assigned at Female 08/16/2022 10:39 AM EDT Legal Sex Female 10:39 AM EDT Gender Identity Female 08/16/2022 10:39 AM EDT Sexual Orientation Straight 08/16/2022 10 :39 AM EDT documented as of this encounter Last Filed Vital Signs Vital Sign Reading Time Taken Comments Blood Pressure 122/84 09/05/2025 9:39 AM EST Pulse 68 09/05/2025 9:39 AM EST Temperature 37.3 C (99.2 F) 09/05/2025 9:39 AM EST Respiratory Rate 20 09/05/2025 9:39 AM EST Oxygen Saturation - - Inhaled Oxygen Concentration - - Weight 77.3 kg (170 lb 8 oz) 09/05/2025 9:39 AM EST Height 165.1 cm (5' 5 ) 09/05/2025 9:39 AM EST Body Mass Index 28.37 09/05/2025 9:39 AM EST documented in this encounter Progress Notes * Bonnie Laughlin CNM - 09/05/2025 9:30 AM EST Subjective Patient ID: Sara Lino is a 40 y.o. female who presents for pap NIL/HPV neg 2023 preceded by NIL/HPV pos 2022. Due for co-testing today. No worrisome findings on pelvic ultrasound 06/2025, ordered due to shortened menstrual interval. Started on Slynd for menstrual management. LMP 08/02. 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 Still interested in [facility], but would like to return for the this another day. Planning to go to [facility] lab to get VWB testing. Mild anemia, normal TSH 06/2025. Gonorrhea/Chlamydia neg 10/2024. Declines breast exam today. Mammogram BIRADS 1 cat c 06/2025. Notes boil in left inguinal area that she would like checked. Quit smoking 06/2025- congratulations! Frustrated by weight gain. Reassured, common after quitting smoking. Try to find lower calorie foods if oral fixation an issue, work on increasing physical activity. Review of Systems Genitourinary: Negative for dyspareunia, dysuria, frequency, genital sores, hematuria, menstrual problem, pelvic pain, urgency, vaginal bleeding, vaginal discharge and vaginal pain. No abnormal bleeding, no breast pain, no breast mass, no nipple discharge Objective BP 122/84 (BP Location: Left arm, Patient Position: Sitting, BP Cuff Size: Adult) Pulse 68 Temp99.2 ??F (37.3 ??C) (Oral) Resp 20 Ht 5' 5 (1.651 m) Wt 170 lb 8 oz (77.3 kg) LMP 08/02/2025 BMI 28.37 kg/m?? Physical Exam Program Lead present: declines nurse tech. Constitutional: Appearance: Normal appearance. Genitourinary: General: Normal vulva. Labia: Right: No rash, tenderness, lesion or injury. Left: No rash, tenderness, lesion or injury. Vagina: Normal. No signs of injury and foreign body. No vaginal discharge, erythema, tenderness, bleeding or lesions. Cervix: No cervical motion tenderness, discharge, friability, lesion, erythema, cervical bleeding or eversion. Uterus: Normal. Not enlarged and not tender. Adnexa: Right adnexa normal and left adnexa normal. Right: No mass, tenderness or fullness. Left: No mass, tenderness or fullness. Comments: Largely resolved small area of folliculitis left inner night. No erythema or exudate, slightly hyperpigmented. Neurological: Mental Status: She is alert. Psychiatric: Mood and Affect: Mood normal. Behavior: Behavior normal. Assessment/Plan Diagnoses and all orders for this visit: Cervical cancer screening - Pap Smear [facility] 3 years if normal/HPV negative. Will contact with results and plan. Reassured, area of folliculitis largely resolved. She used antibiotic ointment previously, may stopnow. Abnormal uterine bleeding No worrisome findings to date. Reassured, light or absent bleeding common with progestin only pill,not dangerous. Will get VWB testing as ordered. Reviewed pros and cons of progestin only pill vs progestin IUD. She would like to return for IUD insertion. Pre-insertion instructions reviewed. Continue progestin only pill until then, take 800mg ibuprofen or 1000mg Tylenol with food 1 h prior to appointment, drink plenty of water. May bring partner for support. documented in this encounter Plan of Treatment Upcoming Encounters Date Type Department Care Team (Late st Contact Info) Description 09/19/2025 10:00 AM EST Procedure Visit [facility] [address] [place] [address] Bonnie Laughlin CNM [address] [place] [address] Scheduled Orders Name Type Priority Associated Diagnoses Orde r Schedule Pap Smear Pathology and Cytology Routine Cervical cancer screening Ordered: 09/05/2025 documented as of this encounter Visit Diagnoses Diagnosis Cervical cancer screening- Primary Screening for malignant neoplasm of the cervix Abnormal uterine bleeding Unspecified disorder of menstruation and other abnormal bleeding from female genital tract documented in this encounter Additional Health Concerns Assessment Noted Time PHQ-9 Depression Total Score: 3 04/15/20 25 9:54 AM EDT documented as of this encounter Care Teams Operations Specialists Relationship Specialty Start Date End Date Nereyda Kuo FNP [address] [place] [address] PCP - General Family Medicine 03/01/23 documented as of this encounter
--- OUTSIDE RECORDS SUMMARY | 2025-09-05 20:51 | XMS_ITS | Encounter Summary ---
Author Organization [employer] Address [address] [facility] 7t [place] [address] Care Team Providers Care Collections Attorney Name Role Phone Ayaan Nereyda MOLDED GOODS SPOT PICKER Primary Care Provider [phone] Reason for Visit * Reason Onset Date Comments Copay 09/05/2025 Encounter Details Date Type Department Care Team ([facility] st Contact Info) Description 09/05/2025 Telephone [facility] [address] [place], [place] [phone] Bonnie Laughlin CN [address] [place], [place] [phone] Copay Social History Tobacco Use Types Packs/Day Years Used Date Smoking Tobacco: Former Cigarettes Passive Smoke Exposure: Past Smokeless Tobacco: Never Alcohol Use Standard Drinks/Week [...] encounter Miscellaneous Notes * Telephone Encounter - Mya Sharma - 09/05/2025 9:23 AM EST Patient walked in for appointment. Patient co pay was waived because the appointment is a PAP. Co pays are not collected for PAP, PE clinical information systems director visits. Patient was not aware said she always pays. Patient was informed for all other appointment co pays will be collected except these. Patient was advised if she receives a bill for today's $20 (09/05/2025) then she should speak to Billing department. documented in this encounter Plan of Treatment Upcoming Encounters Date Type Department Care Team (Late st Contact Info) Description 09/19/2025 10:00 AM EST Procedure Visit [facility] [address] [place] [address] Bonnie Laughlin CNM [address] [place] [address] documented as of this encounter Visit Diagnoses Not on filedocumented in this encounter Additional Health Concerns Assessment Noted Time PHQ-9 Depression Total Score: 3 04/15/20 25 9:54 AM EDT documented as of this encounter Care Teams Collections Attorney Relationship Specialty Start Date End Date Nereyda Kuo FNP [address] [place] [address] PCP - General Family Medicine 03/01/23 documented as of this encounter
--- OUTSIDE RECORDS SUMMARY | 2025-09-05 20:51 | XMS_ITS | Clinical Summary ---
Author Organization [employer] Address [address] [place] [address] Care Team Providers Care Home Child Care Provider Name Role Phone [facility] Primary Care Provider [phone] Allergies No known active allergies Medications clotrimazole (Lotrimin) 1 % cream Apply topically 2 times daily. 40 g 1 3 Active Additional Information Patient not taking.Reported on 09/05/2025 cyclobenzaprine (Flexeril) 5 MG tabletIndicatio ns:Low back pain at multiple sites Take 1 tablet (5 mg) by mouth if needed in the morning, at noon, and at bedtime for muscle spasms. 30 tablet 1 5 11/02/19 26 Active Additional Information Patient not taking.Reported on 09/05/2025 ibuprofen 600 MG tabletIndicatio ns:Low back pain [...] day 30 tablet 11 5 Active nicotine polacrilex (Nicorette) 4 MG gumIndications: Tobacco use Chew 1 each (4 mg) if needed for smoking cessation. Do not exceed 24 pieces in a day 100 each 5 Active Additional Information Patient not taking.Reported on 09/05/2025 Drospirenone (Slynd) 4 MG tabletIndicatio ns:Abnormal uterine bleeding Take 1 tablet by mouth Once per day. 28 tablet 11 09/05/2025 12:50 PM EST Active nicotine polacrilex (Commit) 4 MG lozenge Dissolve 1 lozenge (4 mg) in the mouth every 2 (two) hours if needed for smoking cessation. 100 lozenge 1 5 Active Additional Information Patient not taking.Reported on 09/05/2025 nicotine (Nicoderm CQ) 14 MG/24HR patchIndication s:Tobacco use Place 1 patch on the skin 1 (one) time each day at the same time. 30 patch 1 5 Active Additional Information Patient not taking.Reported on 09/05/2025 Active Problems Problem Noted Date Diagnosed Date Healthcare maintenance 03/29/2023 Overview (03/29/2023): Mammo: Routine age 40 Pap: Hx of abnormal pap. 03/2021 NIL HPV +/ 05/2022, due in April for pap; C-scope: Routine age 45 BMD: Routine age 65 Iron deficiency anemia due to chronic blood loss 03/29/2023 Overview (03/29/2023): Oral ferrous gluconate every other day Previously receiving IV iron in [place] d/t difficult tolerating s/e S/t heavy menses Anxiety 03/06/2023 Overview (03/29/2023): Sertraline 25mg daily Declined [facility] referral Tobacco use disorder 03/06/2023 Encounters Date Type Department Care Team Description 09/05/2025 9:30 AM EST Procedure Visit [facility] [address] [place] [address] Markie Sullivan CNM Cervical cancer screening (Primary Dx); Abnormal uterine bleeding 09/05/2025 Telephone [facility] [place] [address] Markie Sullivan CNM [place] 09/05/2025 Travel 09/04/[address] [facility] [address] [place] [address] Markie Sullivan CNM chart prep 09/04/2025 Travel 08/30/2025 1:[address] [facility] [address] [place] [address] Lydia Boyd RN Encounter for immunization 08/30/2025 Travel 08/15/[address] [facility] [address] [place] [address] Nereyda Kuo FNP October Recall 07/18/[address] [facility] [address] [place] [address] Nereyda Kuo FNP Iron deficiency anemia due to chronic blood loss 07/08/[address] [facility] [address] [place] [address] Keke Lassiter MA 07/02/[address] [facility] [address] [place], [place] [phone] Jacob Brown MD 07/01/2025 Results Follow-Up [facility] [address] [place] [address] Nereyda Kuo FNP CBC auto differential, Ferritin, TSH W/Reflex to FT4, US Pelvis Transvaginal 06/21/2025 11:45 AM EDT Office Visit [facility] [address] [place] [address] Nereyda Kuo FNP Abnormal uterine bleeding (Primary Dx); Iron deficiency anemia due to chronic blood loss; Tobacco use 06/21/2025 Travel 06/14/2025 Travel from Last 3 Months Immunizations Immunization Administration Dates Next Due DTP 04/12/1989, 6,1985,1984 DTaP / HiB / IPV 05/07/1988,07/11/1986 HPV 9-Valent 07/12/2022 HPV, Quadrivalent 11/24/2018,09/22/2018 Hep B, Adolescent or Pediatric 10/06/1998,1997,04/01/1998 IPV 04/12/1989,1985,1985 Influenza Injectable Quadriv alant Preservative Free IIV4 MDCK 07/07/2023,09/08/2022,07/22/2021 Influenza injectable quadriv alent preservative free 08/07/2020 Influenza, seasonal, injecta ble, preservative free 08/30/2025,07/04/2024 MMR 11/08/1994,07/11/1986 TD (adult), 2 Lf tetanus [...] 20 09/05/2025 9:39 AM EST Oxygen Saturation 99% 11/12/2024 9:30 AM EST Inhaled Oxygen Concentration - - Weight 77.3 kg (170 lb 8 oz) 09/05/2025 9:39 AM EST Height 165.1 cm (5' 5 ) 09/05/2025 9:39 AM EST Body Mass Index 28.37 09/05/2025 9:39 AM EST Plan of Treatment Upcoming Encounters Date Type Department Care Team (Late st Contact Info) Description 09/19/2025 10:00 AM EST Procedure Visit [facility] [address] [place] [address] Markie Sullivan, MANUELA [address] [place] [address] Health Maintenance Due Date Last Done Comments COVID-19 Vaccine ( season) 2025 10/06/2021, 12/03/2020, 11/05/2020 Cervical Cancer Screening 09/11/2025 HPV/Cotest 09/11/2025 09/11/2024, 08/25/2023 Pap Smear 09/11/2025 09/11/2024, 08/25/2023 SDOH Screening 10/24/2025 10/24/2024 Depression Screening 04/15/2026 04/15/2025, 03/01/20 23 Alcohol/Substance Use Screening 09/05/2026 09/05/2025 Disability Screening 09/05/2026 09/05/2025 Family Planning (PISQ) 09/05/2026 09/05/2025 Tobacco Screening 09/05/2026 09/05/2025 Mammogram 07/03/2027 07/03/2025 Zoster Vaccines (1 of 2) 2035 DTaP/Tdap/Td [...] C Screening Completed 03/25/2023 Influenza Vaccine Completed 08/30/2025, , 07/07/2023, Additional history exists Hepatitis A Vaccines Aged [...] Procedure Name Priority Date/Time Associated Diagnosis Comments US PELVIS TRANSVAGINAL Urgent 9:32 AM EDT Abnormal uterine bleeding BI MAMMOGRAM SCREENING TOMOSYNTHESIS BILATERAL Routine 07/03/2025 3:29 PM EDT Encounter for screening mammogram for breast cancer TSH W/REFLEX TO FT4 Routine 06/27/2025 8 [...] Recently Relevant to Health Maintenance Results * US Pelvis Transvaginal (07/05/2025 9:32 AM EDT) Anatomical Region Laterality Modality Pelvis Ultrasound 07/05/2025 9:32 AM EDT Narrative 07/05/2025 10:21 AM EDT [place] [address] Ultrasound Report Signed Patient: Sara Lino MR#: [id number] 37 : 1985 Acct:[id number] Age/Sex: 40 / F ADM Date: 07/05/25 Loc: . Attending Dr: Nereyda LR Ordering Physician: Nereyda Kuo Date of Service: 07/05/25 Procedure(s): US pelvic and transvaginal Accession Number(s): [id number] cc: Nereyda Kuo Reason for Exam: 40 y.o F with abnormal utterine bleeding EXAMINATION: US PELVIS TRANSABDOMINAL AND TRANSVAGINAL HISTORY: 40 y.o F with abnormal uterine bleeding COMPARISON: Comparison is made with the prior examination dated 09/16/2023. TECHNIQUE: Transabdominal and endovaginal real-time 2D guillermo-scale ultrasound was performed. FINDINGS: Uterus: The uterus is normal in size, measuring 9.8 x 4.8 x 6.2 cm. Myometrium has a normal echotexture. No fibroids are identified. Endometrium: The endometrial stripe measures 10 mm in thickness. There are nabothian cysts in the cervix. Right ovary: The right ovary measures 2.4 x 1.4 x 1.4 cm. The right ovary is normal in size and echotexture. Left ovary: The left ovary measures 3.5 x 2.0 x 2.8 cm. The left ovary is normal in size and echotexture, demonstrating a dominant follicle. Pelvic fluid: none. US/US pelvic and transvaginal IMPRESSION: Nabothian cysts in the cervix. Otherwise unremarkable pelvic ultrasound. Electronically signed by: Sukumar Chinchilla MD 07/05/2025 10:18 AM EDT RP Dictated By: Sukumar Chinchilla MD Signed By: <Electronically signed by Sukumar Chinchilla MD in OV> 07/05/25 1018 DD/ 0932 TD/TT: 07/05/25 0954 Roller Coaster Designer: Procedure Note Donotuseinterpreter, Image - 07/05/2025 [place] [address] Ultrasound Report Signed Patient: Dash Lino#: [id number] 37 : 1985Acct:[id number] Age/Sex: 40 / FADM Date: 07/05/25 Loc: HO.US Attending Dr: Nereyda LR Ordering Physician: Nereyda Kuo Date of Service: 07/05/25 Procedure(s): US pelvic and transvaginal Accession Number(s): [id number] cc: Nereyda Kuo Reason for Exam: 40 y.o F with abnormal utterine bleeding EXAMINATION: US PELVIS TRANSABDOMINAL AND TRANSVAGINAL HISTORY: 40 y.o F with abnormal uterine bleeding COMPARISON: Comparison is made with the prior examination dated 09/16/2023. TECHNIQUE: Transabdominal and endovaginal real-time 2D guillermo-scale ultrasound was performed. FINDINGS: Uterus: The uterus is normal in size, measuring 9.8 x 4.8 x 6.2 cm. Myometrium has a normal echotexture. No fibroids are identified. Endometrium: The endometrial stripe measures 10 mm in thickness. There are nabothian cysts in the cervix. Right ovary: The right ovary measures 2.4 x 1.4 x 1.4 cm. The right ovary is normal in size and echotexture. Left ovary: The left ovary measures 3.5 x 2.0 x 2.8 cm. The left ovary is normal in size and echotexture, demonstrating a dominant follicle. Pelvic fluid: none. US/US pelvic and transvaginal IMPRESSION: Nabothian cysts in the cervix. Otherwise unremarkable pelvic ultrasound. Electronically signed by: Sukumar Chinchilla MD 07/05/2025 10:18 AM EDT Dictated By: Sukumar Chinchilla MD Signed By: <Electronically signed by Sukumar Chinchilla MD in OV> 07/05/25 1018 DD/ 0932 TD/TT: 07/05/25 0954 Roller Coaster Designer: Nereyda LR IM US PROCEDURES Edited Resu lt - Final * BI Mammogram Screening Tomosynthesis Bilateral (07/03/2025 3:29 PM EDT) Anatomical Region Laterality Modality Breast Bilateral Mammography 07/03/2025 3:29 PM EDT Narrative 07/08/2025 2:27 PM EDT [facility] [address] [place] [address] Mammography Report Signed Patient: Sara Lino MR#: [id number] 37 : 1985 Acct:[id number] Age/Sex: 40 / F ADM Date: 07/03/25 Loc: MAMMO Attending Dr: Nereyda LR Ordering Physician: Nereyda Kuo Results: 1Nega tiyovany Date of Service: 07/03/25 Follow Up: 1 Year From Orig inal Mammogram Procedure(s): MM tomosynthesis screening BI Accession Number(s): [id number] cc: Nereyda Kuo Reason For Exam: SCREENING EXAMINATION: MM SCREENING DIGITAL BREAST TOMOSYNTHESIS, BILATERAL CLINICAL INFORMATION: Screening. Asymptomatic. COMPARISON: Mammography: Baseline. TECHNIQUE: Digital breast mammography with tomosynthesis is performed in both the craniocaudal and mediolateral oblique views along with computer-aided detection (CAD). FINDINGS: The breasts are heterogeneously dense, which may obscure small masses (ACR BI-RADS breast composition Category c). There are no significant masses, abnormal calcifications, or other abnormalities. MM/MM tomosynthesis screening BI IMPRESSION: No mammographic evidence of malignancy. ASSESSMENT: BI-RADS BI-RADS 1 - Negative RECOMMENDATION: Routine annual mammography screening. 1 year F/U This examination should not preclude the clinical evaluation of a suspicious palpable abnormality. This patient's information was entered into a reminder system with a target due date for their next mammogram. Electronically signed by: Lexy Munoz DO 07/08/2025 02:25 PM EDT Dictated By: Lexy Munoz DO Signed By: <Electronically signed by Lexy Munoz DO in OV> 07/08/25 1425 DD/ 1529 TD/TT: 07/03/25 1515 Roller Coaster Designer: Procedure Note Donotuseinterpreter, Image - 07/08/2025 [facility] [address] [place] [address] Mammography Report Signed Patient: Dash Lino#: [id number] 37 : 1985Acct:[id number] Age/Sex: 40 / FADM Date: 07/03/25 Loc: [facility] Attending Dr: eNreyda Kuo GERICARE AIDE TEACHER Ordering Physician: Nereyda Kuo FNPResults: 1Nega tive Date of Service: 07/03/25Follow Up: 1 Year From Orig inal Mammogram Procedure(s): MM tomosynthesis screening BI Accession Number(s): [id number] cc: [place] GERICARE AIDE TEACHER Reason For Exam: SCREENING EXAMINATION: MM SCREENING DIGITAL BREAST TOMOSYNTHESIS, BILATERAL CLINICAL INFORMATION: Screening. Asymptomatic. COMPARISON: Mammography: Baseline. TECHNIQUE: Digital breast mammography with tomosynthesis is performed in both the craniocaudal and mediolateral oblique views along with computer-aided detection (CAD). FINDINGS: The breasts are heterogeneously dense, which may obscure small masses (ACR BI-RADS breast composition Category c). There are no significant masses, abnormal calcifications, or other abnormalities. MM/MM tomosynthesis screening BI IMPRESSION: No mammographic evidence of malignancy. ASSESSMENT: BI-RADS BI-RADS 1 - Negative RECOMMENDATION: Routine annual mammography screening. 1 year F/U This examination should not preclude the clinical evaluation of a suspicious palpable abnormality. This patient's information was entered into a reminder system with a target due date for their next mammogram. Electronically signed by: Lexy Munoz DO 07/08/2025 02:25 PM EDT RP Dictated By: Lexy Munoz DO Signed By: <Electronically signed by Lexy Munoz DO in OV> 07/08/25 1425 DD/ 1529 TD/TT: 07/03/25 1515 Roller Coaster Designer: [facility] IMG BI PROCEDURES Final Resul t * TSH W/Reflex to FT4 (06/27/2025 8:47 AM EDT) TSH reflex Free T4 1.41 0.32 - 4.0 uIU/mL [facility] Blood Venous blood specimen / Unknown 06/27/2025 8:47 AM EDT 06/27/2025 11:41 AM EDT Result [facility] LAB BLOOD ORDERABLES Final Re sult [facility] [address] [place] [phone] * (ABNORMAL) CBC auto differential (06/27/2025 8:47 AM EDT) White Blood Count 4.3(L) 4.8 - 10.8 X10*3/uL [facility] Red Blood Count 4.17(L) 4.20 - 5.50 X10*6/uL [facility] Hemoglobin 11.6(L) 12.0 - 16.0 g/dl [facility] Hematocrit 35.8(L) 37.0 - 47.0 % [facility] Mean Corpuscular Volume 85.9 80.0 - 98.0 fL [facility] Mean Corpuscular Hemoglobin 27.8 27.0 - 33.0 pg [facility] Mean Corpuscular HGB Conc 32.4 31.0 - 35.0 g/dl [facility] Red Cell Distribution Width 14.9 11.0 - 16.0 % [facility] Platelet Count 204 160 - 400 X10*3/uL [facility] Mean Platelet Volume 11.7 9.4 - 12.3 fL [facility] Neutrophils Percent Auto 50.1 45 - 73 % [facility] Imm Gran Pct Auto 0.2 0.0 - 0.4 % [facility] Lymphocytes Percent Auto 41.5(H) 20 - 40 % [facility] Monocytes Percent Auto 5.2 2 - 11 % [facility] Eosinophils Percent Auto 2.8 0 - 4 % [facility] Basophils Percent Auto 0.2 0 - 2 % [facility] NRBC Pct Auto 0.0 0.0 - 0.2 /100WBC [facility] Neutrophils Absolute Auto 2.1 2.0 - 8.3 x10*3/uL [facility] Imm Gran Abs Auto 0.01 0.00 - 0.03 X10*3/uL [facility] Lymphocytes Absolute Auto 1.8 1.2 - 4.9 X10*3/uL [facility] Monocytes Absolute Auto 0.2 0.1 - 1.2 X10*3/uL [facility] Eosinophils Absolute Auto 0.1 0.0 - 0.4 X10*3/uL [facility] Basophils Absolute Auto 0.0 0.0 - 0.2 X10*3/uL [facility] NRBC Abs Auto 0.000 0.0 - 0.012 X10*3/uL [facility] Blood Venous blood specimen / Unknown 06/27/2025 8:47 AM EDT 06/27/2025 11:35 AM EDT [facility] LAB BLOOD ORDERABLES Final Re sult Performing Organization Address City/[facility] Co de Phone Number [facility] [address] [place] [phone] * Ferritin (06/27/2025 8:47 AM EDT) Ferritin 18 10 - 250 ng/mL [facility] Blood Venous blood specimen / Unknown 06/27/2025 8:47 AM EDT 06/27/2025 11:41 AM EDT [facility] LAB BLOOD ORDERABLES Final Re sult Performing Organization Address [facility] de Phone Number [facility] [address] [place] [phone] * Pap Smear (09/11/2024 9:52 AM EST) Swab Cervix uteri structure / Unknown 09/11/2024 9:52 AM EST 09/12/2024 8:30 AM EST Narrative [facility] - 09/19/2024 10:33 AM EST ----- ------- Name: Sara Lino Age/Sex: 39/F : 1985 Unit#: [id number] Attend Dr: [facility] Re09/11/24 Status: DEP REF Location: [facility] Disch: ----- ------- SPEC : [id number] RECD: 09/12/24 STATUS: HEATHER CERVANTES NUM: [id number] TRAE: 09/11/[address] [facility] [address]: MARKIE [facility] ENTERED: 09/12/24 SP TYPE: Pap Smr OTHR DR: ORDERED: Pap Smear Interpretation Satisfactory for evaluation. Negative for intraepithelial lesion or malignancy. Coccobacilli consistent with shift in vaginal jojo. HPV High Risk: Negative HPV Genotyping 16: Negative HPV Genotyping 18: Negative Clinical Information LMP: 09/03/2024 Previous PAP test: Unknown date, HPV + Material Received ThinPrep-Cervical ----- ------- Signed (signature on file) AMANDA Fletcher ([facility]) 09/19/24 1033 ----- ------- END OF REPORT Markie Truman CNM LAB CYTOLOGY ORDERABLES F inal Result Performing Organization Address [facility]/ZIP Co de Phone Number [facility] [address] [place] [phone] * HPV mRNA E6/E7 w/Reflex to HPV Genotypes 16, 18/45 (09/11/2024 12:00 AM EST) Historical Provider MD LAB CYTOLOGY ORDERABLES F inal Result Performing Organization Address [facility] Co de Phone Number [facility] [address] [place] [phone] * Hepatitis C Antibody with Reflex to HCV, RNA, Quantitative, Real-Time PCR (03/25/2023 8:25 AM EDT) Hepatitis C Antibody NON-REACT KATIE NON-REACT KATIE Location Index <0.02 <1.00 Location Comment: HCV antibody was non-reactive. There is no laboratory evidence of HCV infection. In most cases, no further action is required. However, if recent HCV exposure is suspected, a test for HCV RNA (test code 15427) is suggested. For additional information please refer to http://education.Urban [employer]age/faq/WPL13c5 (This link is being provided for informational/ educational purposes only.) Blood Venous blood specimen / Unknown 03/25/2023 8:25 AM EDT 03/25/2023 8:26 AM EDT Narrative [facility] - 03/27/2023 11:14 AM EDT FASTING:YES FASTING: YES [facility] GERICARE AIDE TEACHER LAB BLOOD ORDERABLES Final Re sult Performing Organization Address [facility]/ZIP Co de Phone Number [facility] [address], [place] [phone] [facility] [employer] [address] [place] [phone] * HIV-1/2 Antigen and Antibodies, Fourth Generation, with Reflexes (03/25/2023 8:25 AM EDT) HIV Antigen/Antibody, 4th Generation NON-REAC TIVE NON-REAC TIVE [facility] [employer] Comment: HIV-1 antigen and HIV-1/HIV-2 antibodies [...] purpose. For additional information please refer to http://education.Skytide.Mobspire/faq/PVC974 (This link is being provided for informational/ educational purposes only.) The performance of this assay has not been clinically validated in patients less than 2 years old. Blood Venous blood specimen / Unknown 03/25/2023 8:25 AM EDT 03/25/2023 8:26 AM EDT Narrative [facility] - 03/27/2023 11:14 AM EDT FASTING:YES FASTING: YES [facility] LAB BLOOD ORDERABLES Final Re sult [facility] [address], [place] [address] [facility] [employer] [address] [place] [phone] from Last 3 Months or Most Recently Relevant to Health Maintenance Insurance Care Teams Home Child Care Provider Relationship Specialty Start Date End Date Nereyda Kuo FNP [address] [place] [phone] PCP - General Family Medicine 03/01/23
--- OUTSIDE RECORDS SUMMARY | 2025-09-05 20:51 | XMS_ITS | Encounter Summary ---
Author Organization [employer] Address [address] [facility] 7t [place] [address] Care Team Providers Care Organ Recovery Coordinator Name Role Phone Ayaan Nereyda FINGER GRIP MACHINE OPERATOR Primary Care Provider [phone] Encounter Details Date Type Department Care Team (Late st Contact Info) Description 07/02/2025 Orders Only [facility] [address] [place], [place] [phone] Jacob Brown MD [address] [place] [address] Social History Tobacco Use Types Packs/Day Years [...] as of this encounter Plan of Treatment Upcoming Encounters Date Type Department Care Team (Late st Contact Info) Description 09/19/2025 10:00 AM EST Procedure Visit [facility] [address] [place] [address] Bonnie Laughlin CNM [address] [place] [address] documented as of this encounter Visit Diagnoses Not on filedocumented in this encounter Additional Health Concerns Assessment Noted Time PHQ-9 Depression Total Score: 3 04/15/20 25 9:54 AM EDT documented as of this encounter Care Teams Organ Recovery Coordinator Relationship Specialty Start Date End Date Nereyda Kuo FNP [address] [place] [phone] PCP - General Family Medicine 03/01/23 documented as of this encounter
--- OUTSIDE RECORDS SUMMARY | 2025-09-05 20:51 | XMS_ITS | Encounter Summary ---
Author Organization [employer] Address [address] [facility] 7t [place] [address] Care Team Providers Care Toy Trains And Accessories Salesperson Name Role Phone Nereyda Kuo ALTERATION INSPECTOR Primary Care Provider [phone] Encounter Details Date Type Department Care Team (Latest Contact Info) Description 09/05/2025 Travel Social History Tobacco Use Types Packs/Day [...] Description 09/19/2025 10:00 AM EST Procedure Visit [facility] [address] [place] [address] Bonnie Laughlin CNM [address] [place] [address] documented as of this encounter Visit Diagnoses Not on filedocumented in this encounter Additional Health Concerns Assessment Noted Time PHQ-9 Depression Total Score: 3 04/15/20 25 9:54 AM EDT documented as of this encounter Care Teams [employer] Tra[employer] And Accessories Salesperson Relationship Specialty Start Date End Date Nereyda Kuo FNP [address] [place] [address] PCP - General Family Medicine 03/01/23 documented as of this encounter
--- OUTSIDE RECORDS SUMMARY | 2025-09-05 20:51 | XMS_ITS | Encounter Summary ---
Author Organization [employer] Address [address] [facility] 7t [place] [address] Care Team Providers Care Awning Spreader Name Role Phone Ayaan Nereyda MODEL DRESSER Primary Care Provider [phone] Reason for Visit * Reason Onset Date Comments chart prep 09/04/2025 Encounter Details Date Type Department Care Team ([facility] st Contact Info) Description 09/04/2025 Telephone [facility] [address] [place], [place] [phone] Bonnie Laughlin CN [address] [place], [place] [phone] chart prep Social History Tobacco Use Types Packs/Day Years [...] encounter Miscellaneous Notes * Telephone Encounter - Edmundo Hoffman [place] - 09/04/2025 10:55 AM EST Chart Prep Labs: not applicable Images: not applicable Referrals: not applicable Vaccines due: Covid Screenings: not applicable Overdue care gaps: SBIRT and Disability screen documented in this encounter Plan of Treatment Upcoming Encounters Date Type Department Care Team (Late st Contact Info) Description 09/19/2025 10:00 AM EST Procedure Visit [facility] [address] [place] [address] Bonnie Laughlin CNM [address] [place] [address] documented as of this encounter Visit Diagnoses Not on filedocumented in this encounter Additional Health Concerns Assessment Noted Time PHQ-9 Depression Total Score: 3 04/15/20 25 9:54 AM EDT documented as of this encounter Care Teams Awning Spreader Relationship Specialty Start Date End Date Nereyda Kuo FNP [address] [place] [address] PCP - General Family Medicine 03/01/23 documented as of this encounter
--- OUTSIDE RECORDS SUMMARY | 2025-09-05 20:51 | XMS_ITS | Encounter Summary ---
Author Organization [employer] Address [address] [facility] [address] [place] [address] Care Team Providers Care Toll Patrolman Name Role Phone [facility] Primary Care Provider [phone] Encounter Details Date Type Department Care Team (Latest Contact Info) Description 07/01/2025 Results Follow-Up [facility] [address] [place], [place] [phone] [facility] [address] [place] [address] CBC auto differential, Ferritin, TSH W/Reflex to FT4, US Pelvis Transvaginal Social History Tobacco Use Types Packs/Day Years [...] Description 09/19/2025 10:00 AM EST Procedure Visit [facility] [address] [place] [address] Bonnie Laughlin CNM [address] [place] [address] documented as of this encounter Visit Diagnoses Diagnosis Tobacco use documented in this encounter Additional Health Concerns Assessment Noted Time PHQ-9 Depression Total Score: 3 04/15/20 25 9:54 AM EDT documented as of this encounter Care Teams Toll Patrolman Relationship Specialty Start Date End Date Nereyda Kuo FNP [address] [place] [address] PCP - General Family Medicine 03/01/23 documented as of this encounter
--- OUTSIDE RECORDS SUMMARY | 2025-09-05 20:51 | XMS_ITS | Encounter Summary ---
Author Organization [employer] Address [address] [facility] [address] [place] [address] Care Team Providers Care Seed Packer Name Role Phone [facility] Primary Care Provider [phone] Reason for Visit * Reason Onset Date Comments Med Refill 07/18/2025 Encounter Details Date Type Department Care Team (Late st Contact Info) Description 07/18/2025 Refill [facility] [address] [place], [place] [phone] [facility] [address] [place], [place] [phone] Iron deficiency anemia due to chronic blood loss Social History Tobacco Use Types Packs/Day Years [...] 09/19/2025 10:00 AM EST Procedure Visit [facility] [address] [place] [address] Bonnie Laughlin CNM [address] [place] [address] documented as of this encounter Visit Diagnoses Diagnosis Iron deficiency anemia due to chronic blood loss Iron deficiency anemia secondary to blood loss (chronic) documented in this encounter Additional Health Concerns Assessment Noted Time PHQ-9 Depression Total Score: 3 04/15/20 25 9:54 AM EDT documented as of this encounter Care Teams Seed Packer Relationship Specialty Start Date End Date Nereyda Kuo FNP [address] [place] [address] PCP - General Family Medicine 03/01/23 documented as of this encounter
--- OUTSIDE RECORDS SUMMARY | 2025-09-05 20:51 | XMS_ITS | Encounter Summary ---
Author Organization [employer] Address [address] [facility] [address] [place] [address] Care Team Providers Care Wall Taper Name Role Phone Ayaan Nereyda WAREHOUSE CLERK Primary Care Provider [phone] Encounter Details Date Type Department Care Team (Latest Contact Info) Description 09/04/2025 Travel Social History Tobacco Use Types Packs/Day [...] Description 09/19/2025 10:00 AM EST Procedure Visit [facility] [address] [place] [address] Bonnie Laughlin CNM [address] [place] [address] documented as of this encounter Visit Diagnoses Not on filedocumented in this encounter Additional Health Concerns Assessment Noted Time PHQ-9 Depression Total Score: 3 04/15/20 25 9:54 AM EDT documented as of this encounter Care Teams Wall Taper Relationship Specialty Start Date End Date Nereyda Kuo FNP [address] [place] [id number] PCP - General Family Medicine 03/01/23 documented as of this encounter
--- OUTSIDE RECORDS SUMMARY | 2025-09-05 20:51 | XMS_ITS | Encounter Summary ---
Author Organization [employer] Address [address] [facility] [address] [place] [address] Care Team Providers Care Assistant Librarian Name Role Phone Ayaan Nereyda ATHLETIC DIRECTOR Primary Care Provider [phone] Encounter Details Date Type Department Care Team (Late st Contact Info) Description 02/12/2025 Orders Only [facility] [address] [place] [address] Navya Rubi Social History Tobacco Use Types [...] Description 09/19/2025 10:00 AM EST Procedure Visit [facility] [address] [place], [place] [phone] Bonnie Laughlin CNM [address] [place] [address] documented as of this encounter Procedures Procedure Name Priority Date/Time Associated Diagnosis Comments HPV MRNA E6/E7 REFLEX TO HPV 16, 18/45 Routine 09/11/2024 12:00 AM EST documented in this encounter Results * HPV mRNA E6/E7 w/Reflex to HPV Genotypes 16, 18/45 (09/11/2024 12:00 AM EST) us Historical Provider LAB CYTOLOGY ORDERABLES F inal Result [facility] [address] [place] [address] [phone] documented in this encounter Visit Diagnoses Not on filedocumented in this encounter Additional Health Concerns Assessment Noted Time PHQ-9 Depression Total Score: 0 11/02/19 25 9:34 AM EST documented as of this encounter Care Teams Assistant Librarian Relationship Specialty Start Date End Date Nereyda Kuo FNP [address] [place], [place] [phone] PCP - General Family Medicine 03/01/23 documented as of this encounter
== END 2025-09-05 16:00 | disposition home or self-care (01) ==
LOC: HO.HHCLNP 15:59
PROVIDERS: Visit Provider Advanced Practice Midwife
DX: Z12.4 Encounter for screening for malignant neoplasm of cervix (principal); Z11.51 Encounter for screening for human papillomavirus (HPV)
CPT/HCPCS: 87626; 88175

== ENCOUNTER 2025-09-11 14:21 | Outpatient (REF) | payer OTHER, SELFPAY ==
[2025-09-19 11:49] LABS: PTT, Activated 29 sec (23-32)
== END 2025-09-11 14:22 | disposition home or self-care (01) ==
LOC: HO.LAB 14:21
PROVIDERS: PCP Registered Nurse; Visit Provider Registered Nurse
DX: N93.9 Abnormal uterine and vaginal bleeding, unspecified (principal)
CPT/HCPCS: 36415; 85240; 85245; 85246; 85247; 85730